=== PATIENT | male | born 1995 | race Caucasian/White ===

== ENCOUNTER 2025-07-10 18:58 | Inpatient (IN) | payer BC, SELFPAY ==
[2025-07-10] VITALS (11 sets, daily range): BP systolic 126–161; BP diastolic 68–132; PULSE 96–123; RESP 13–20; TEMP 36.7–36.8; O2SAT 86–99; BMI 37.8; BMI 36.4
--- NOTE | 2025-07-10 19:27 | RAD_ITS ---
PROCEDURE: ANKLE MIN 3 VIEWS 07/10/2025 REASON FOR EXAM: FRACTURE TECHNIQUE: Procedure Code: RADANK Modality: DX Procedure: ANKLE MIN 3 VIEWS COMPARISON: None FINDINGS: Complex fracture dislocation with combination of the ankle and disarticulation of the ankle mortise with regional soft tissue swelling with dorsal displacement of the tibia relative to the ankle. RAD/Ankle min 3 Views IMPRESSION: As above. Reading Location: [facility]
[2025-07-10] MEDS: 0.9% Normal Saline (1000mL) 1,000 ML 999 ML IV (19:35)
[2025-07-10] MEDS: Midazolam 5 MG/ML Syringe IV (20:05)
--- NOTE | 2025-07-10 20:25 | RAD_ITS ---
PROCEDURE: ANKLE MIN 3 VIEWS 07/10/2025 REASON FOR EXAM: POSTREDUCTION TECHNIQUE: Procedure Code: RADANK Modality: DX Procedure: ANKLE MIN 3 VIEWS COMPARISON: Reviewed FINDINGS: Casted left ankle fracture dislocation with disarticulation of the ankle mortise with regional soft tissue swelling in anatomic malalignment, slightly improved from priors. RAD/Ankle min 3 Views IMPRESSION: As above. Reading Location: [facility]
--- NOTE | 2025-07-10 20:29 | EX.ED.DYSGE1 ---
HPI History of Present Illness Chief Complaint: Lower Extremity Injury Informant: patient and EMS Narrative Narrative: Patient is a 30-year-old male who reports no significant past medical history. He does admit to drinking vodka daily. He states that he was out hunting and as he was walking back to his house he slipped on ice while at the top of stairs and fell injuring his left ankle. He states that he did not strike his head or have loss of consciousness. He denies any history of bleeding disorder or blood thinner use. He states he could not get up secondary to the trauma and EMS was called and he was brought in for evaluation [facility] Medical History Ankle fracture Torn ACL Medical History no medical history Home Medications ?Medication ?Instructions ?Recorded ?Last Taken ?Type NK 07/10/25 Unknown History Allergy/AdvReac Type Severity Reaction Status Date / Time No Known Allergies Allergy Verified 07/10/25 19:02 Social History Smoking Status: Never smoker ROS ROS ED Constitutional Constitutional ED: Denies chills or fever(s) Eyes Eyes: Denies blurry vision or change in vision Cardiovascular Cardiovascular: Reports other Details: Negative syncope ; Denies chest pain, palpitations or racing heartbeat Respiratory/Chest Respiratory/Chest: Denies cough or dyspnea Gastrointestinal Gastrointestinal: Denies abdominal pain, diarrhea, nausea or vomiting Genitourinary Genitourinary ED: Reports dysuria Musculoskeletal Musculoskeletal: Reports other Details: Positive left ankle pain ; Denies back pain or neck pain Integumentary Denies rash Neurologic Neurologic: Denies headache(s) or paresthesias Hematologic/Lymphatic Hematologic/Lymphatic: Denies easy bleeding or easy bruising EXAM Physical Exam Const Vital Signs: 07/10/25 18:59 07/10/25 19:28 07/10/25 19:28 Temperature 98.3 F Temperature Source Oral Pulse Rate 109 H Pulse Rate [1 (Initial Baseline)] Respiratory Rate 18 Respiratory Rate [1 (Initial Baseline)] Blood Pressure 158/100 H Blood Pressure [1 (Initial Baseline)] Blood Pressure Mean 119 Baseline BP Pulse Ox 96 96 Oxygen Delivery Method Nasal Cannula Oxygen Delivery Method [1 (Initial Baseline)] Oxygen Flow Rate (L/min) 2 Oxygen Flow Rate (L/min) [1 (Initial Baseline)] Fraction of Inspired Oxygen (FIO2) [1 (Initial Baseline)] EtCo2 - Document during CPR and with ROSC 40 EtCo2 - Document during CPR and with ROSC [1 (Initial Baseline)] 07/10/25 19:56 07/10/25 20:00 07/10/25 20:06 Temperature 98.1 F Temperature Source Pulse Rate 109 H Pulse Rate [1 (Initial Baseline)] 96 123 H Respiratory Rate 18 Respiratory Rate [1 (Initial Baseline)] 19 H 13 Blood Pressure 153/132 H Blood Pressure [1 (Initial Baseline)] 143/99 H 126/82 H Blood Pressure Mean Baseline BP 153/132 Pulse Ox 97 Oxygen Delivery Method Nasal Cannula Oxygen Delivery Method [1 (Initial Baseline)] Nasal Cannula Nasal Cannula Oxygen Flow Rate (L/min) 2 Oxygen Flow Rate (L/min) [1 (Initial Baseline)] 2 5 Fraction of Inspired Oxygen (FIO2) [1 (Initial Baseline)] 98 EtCo2 - Document during CPR and with ROSC EtCo2 - Document during CPR and with ROSC [1 (Initial Baseline)] 35 30 07/10/25 20:15 07/10/25 20:28 07/10/25 20:43 Temperature Temperature Source Pulse Rate 108 H 110 H 111 H Pulse Rate [1 (Initial Baseline)] Respiratory Rate 15 15 19 H Respiratory Rate [1 (Initial Baseline)] Blood Pressure 153/107 H 161/92 H 143/79 H Blood Pressure [1 (Initial Baseline)] Blood Pressure Mean Baseline BP Pulse Ox 99 99 97 Oxygen Delivery Method Nasal Cannula Nasal Cannula Room Air Oxygen Delivery Method [1 (Initial Baseline)] Oxygen Flow Rate (L/min) 5 2 Oxygen Flow Rate (L/min) [1 (Initial Baseline)] Fraction of Inspired Oxygen (FIO2) [1 (Initial Baseline)] EtCo2 - Document during CPR and with ROSC 35 41 40 EtCo2 - Document during CPR and with ROSC [1 (Initial Baseline)] 07/10/25 22:00 Temperature Temperature Source Pulse Rate 111 H Pulse Rate [1 (Initial Baseline)] Respiratory Rate 20 H Respiratory Rate [1 (Initial Baseline)] Blood Pressure 136/68 H Blood Pressure [1 (Initial Baseline)] Blood Pressure Mean 90 Baseline BP Pulse Ox 97 Oxygen Delivery Method Room Air Oxygen Delivery Method [1 (Initial Baseline)] Oxygen Flow Rate (L/min) Oxygen Flow Rate (L/min) [1 (Initial Baseline)] Fraction of Inspired Oxygen (FIO2) [1 (Initial Baseline)] EtCo2 - Document during CPR and with ROSC EtCo2 - Document during CPR and with ROSC [1 (Initial Baseline)] Positive well nourished and well developed General Appearance ED: well developed HEENT HEENT Narrative: Normocephalic atraumatic No signs of depressed or basilar skull fracture Eyes PERRL and EOMs intact bilaterally General Eye ED: Negative for scleral icterus Neck supple Neck Narrative: No bony deformity or step-off of the cervical spine No midline tenderness to palpation Chest Wall palpation of chest normal Resp normal respiratory effort and clear to auscultation bilaterally Cardio regular rhythm Rate: tachycardic and other Other Details: Tachycardic rate with regular rhythm No murmurs rubs or gallops Radial and carotid pulses are equal and symmetric GI normal to inspection, nondistended, normoactive bowel sounds, non-tender, non-distended and no masses Auscultation: normoactive bowel sounds Palpation: soft Extremity Extremity Narrative: Left lower extremity is neurovascularly intact. There is an obvious deformity of the left ankle mortise consistent with fracture and dislocation. However the patient is closed. Dorsalis pedis and posterior pulse is +1 on the left. Capillary refill is less than 3 seconds. No pain on palpation of the proximal tibia Pelvis is stable Neuro oriented x3, CN's II-XII intact bilaterally and no sensory deficits noted Sensorium / Orientation: alert Psych mental status grossly normal Skin Skin Narrative: There is skin tenting secondary to the ankle fracture without puncture wound or laceration. Capillary refill remains less than 3 seconds. MDM MDM MDM Narrative Medical decision making narrative: Patient reported a mechanical fall therefore there is no need for cardiac or syncope workup. He had an obvious deformity of the left ankle. However he is closed and neurovascularly intact therefore there is no need for immediate reduction. The patient has a distracting injury but there is no obvious signs of trauma anywhere else going against a proximal tibia fracture or pelvic fracture. An x-ray was obtained which confirmed a trimalleolar fracture with talar dislocation. Patient underwent conscious sedation with closed reduction as documented below. However despite improvement of the ankle joint by external visualization x-rays confirm there was still talar displacement. The case was discussed with pediatric dental assistant on-call Dr. Matute. He recommends that as the patient's pain is not well-controlled and I cannot get the fracture alignment close anatomical despite trying 3 separate times that admission with surgery tomorrow is the safest option. Therefore the hospitalist was contacted and agrees to accept the patient for continued care. Patient underwent conscious sedation with closed reduction of left ankle using 170 mg of propofol and 5 mg of Versed. Traction and inversion was applied to the foot and there was spontaneous improvement of the appearance of the ankle joint. Following this the patient was placed in a posterior tibial and stirrup splint. Following application of the splint capillary refill remained less than 3-second. Patient tolerated the procedure well without complication. Total conscious sedation time of approximately 15 minutes The patient does report to essentially drinking daily but has been over 12 hours since his last drink and he only has mild tachycardia which has been in place since he arrived and otherwise is not showing signs of active withdrawal History & Record Review Discussion w/independent historian: EMS personnel and Patient Lab Data Attestation: I reviewed the patient's lab results. Labs: Laboratory Results - last 24 hr 07/10/25 21:52 WBC 11.3 H RBC 4.25 L Hgb 14.9 Hct 40.9 MCV 96.2 H MCH 35.1 H MCHC 36.4 H RDW Std Deviation 41.8 RDW Coeff of Susi 12.0 Plt Count 185 MPV 9.0 Immature Gran % (Auto) 0.300 Neut % (Auto) 74.9 H Lymph % (Auto) 17.5 L Dawson % (Auto) 6.2 Eos % (Auto) 0.7 Baso % (Auto) 0.4 Absolute Neuts (auto) 8.4 H Absolute Lymphs (auto) 1.97 Nucleated RBC % 0 PT 13.9 INR 1.1 APTT 25.6 Sodium 140 Potassium 3.7 Chloride 102 Carbon Dioxide 22.1 Anion Gap 15 BUN 7 Creatinine 0.84 Estim Creat Clear Calc 180.04 Est GFR (MDRD) Non-Af 120 BUN/Creatinine Ratio 8.5 L Glucose 107 H Calcium 8.9 Magnesium 1.9 Total Bilirubin 0.75 AST 228 H ALT 253 H Alkaline Phosphatase 74 Total Protein 7.4 Albumin 4.5 Globulin 2.8 Albumin/Globulin Ratio 1.6 Radiography Diagnostic Testing: Clinical Impression(s) from Imaging Studies Ankle X-Ray 07/10/25 19:27 IMPRESSION: As above. Reading Location: [facility] Ankle X-Ray 07/10/25 20:25 IMPRESSION: As above. Reading Location: [facility] Ankle X-Ray 07/10/25 21:40 IMPRESSION: As above. Reading Location: [facility] Initial left ankle x-ray as interpreted by the emergency medicine physician reveals a trimalleolar fracture with talar dislocation There are 3 separate x-rays for postreduction. Each x-ray series was reviewed by the emergency medicine physician and each show slight improvement of the talar alignment with persistent trimalar fracture Management Discussion w/another healthcare provider: Hospitalist and Pump Servicer Supervisor Procedures Procedural Sedation 1 (Initial Baseline): Consent Signed: Yes Any Problems With Anesthesia: No You/Your family experience fever (hyperthermia) w/anesthesia: Unknown Sedation medication: Propofol (Propofol and Versed were used) Dose: 170 Maliampati Score: Class II ASA Classification: II Discharge Plan Dx/Rx/DC Orders Clinical Impression: Fracture dislocation of left ankle, Accidental fall, Alcohol use Disposition Disposition: Acute Care [facility]
--- NOTE | 2025-07-10 20:58 | CONS.ORTHO ---
HPI Consult Data Date of Consult: 07/10/25 HPI Narrative HPI Narrative: LYDIA NGUYỄN, is a 30 M who presents post CR for ankle trimal fracture. [facility] Medical History (Updated 07/10/25 @ 20:59 by Constantine Owen MD) Ankle fracture Torn ACL Medical History no medical history Home Medications ?Medication ?Instructions ?Recorded ?Last Taken ?Type NK 07/10/25 Unknown History Allergy/AdvReac Type Severity Reaction Status Date / Time No Known Allergies Allergy Verified 07/10/25 19:02 Social History Smoking Status: Never smoker Vital Signs Vital Signs Vital Signs: 07/10/25 18:59 07/10/25 19:28 07/10/25 19:28 Temperature 98.3 F Temperature Source Oral Pulse Rate 109 H Pulse Rate [1 (Initial Baseline)] Respiratory Rate 18 Respiratory Rate [1 (Initial Baseline)] Blood Pressure 158/100 H Blood Pressure [1 (Initial Baseline)] Blood Pressure Mean 119 Baseline BP Pulse Ox 96 96 Oxygen Delivery Method Nasal Cannula Oxygen Delivery Method [1 (Initial Baseline)] Oxygen Flow Rate (L/min) 2 Oxygen Flow Rate (L/min) [1 (Initial Baseline)] Fraction of Inspired Oxygen (FIO2) [1 (Initial Baseline)] EtCo2 - Document during CPR and with ROSC 40 EtCo2 - Document during CPR and with ROSC [1 (Initial Baseline)] 07/10/25 19:56 07/10/25 20:00 07/10/25 20:06 Temperature 98.1 F Temperature Source Pulse Rate 109 H Pulse Rate [1 (Initial Baseline)] 96 123 H Respiratory Rate 18 Respiratory Rate [1 (Initial Baseline)] 19 H 13 Blood Pressure 153/132 H Blood Pressure [1 (Initial Baseline)] 143/99 H 126/82 H Blood Pressure Mean Baseline BP 153/132 Pulse Ox 97 Oxygen Delivery Method Nasal Cannula Oxygen Delivery Method [1 (Initial Baseline)] Nasal Cannula Nasal Cannula Oxygen Flow Rate (L/min) 2 Oxygen Flow Rate (L/min) [1 (Initial Baseline)] 2 5 Fraction of Inspired Oxygen (FIO2) [1 (Initial Baseline)] 98 EtCo2 - Document during CPR and with ROSC EtCo2 - Document during CPR and with ROSC [1 (Initial Baseline)] 35 30 07/10/25 20:15 07/10/25 20:28 07/10/25 20:43 Temperature Temperature Source Pulse Rate 108 H 110 H 111 H Pulse Rate [1 (Initial Baseline)] Respiratory Rate 15 15 19 H Respiratory Rate [1 (Initial Baseline)] Blood Pressure 153/107 H 161/92 H 143/79 H Blood Pressure [1 (Initial Baseline)] Blood Pressure Mean Baseline BP Pulse Ox 99 99 97 Oxygen Delivery Method Nasal Cannula Nasal Cannula Room Air Oxygen Delivery Method [1 (Initial Baseline)] Oxygen Flow Rate (L/min) 5 2 Oxygen Flow Rate (L/min) [1 (Initial Baseline)] Fraction of Inspired Oxygen (FIO2) [1 (Initial Baseline)] EtCo2 - Document during CPR and with ROSC 35 41 40 EtCo2 - Document during CPR and with ROSC [1 (Initial Baseline)] Weight Weight: 286 lb 6.087 oz Body Mass Index (BMI) 37.8 Imaging Radiology Impression Ankle X-Ray 07/10/25 19:27 IMPRESSION: As above. Reading Location[facility] Ankle X-Ray 07/10/25 20:25 IMPRESSION: As above. Reading Location: [facility] Assessment & Plan Assessment/Plan (1) Ankle fracture: PLAN: 30 yr M with ankle trimal fracture. Talus still looks laterally tilted - recommended to remove splint, keep foot plantar flexed, and apply inversion force, with point over tip of fibula pushing medially with new splint and repeat xr to ensure reduction that would take pressure off medial skin. Asked to see if podiatry willing to take on, if not, then call me back to let me know thanks.
--- NOTE | 2025-07-10 21:02 | CM.ED ---
Social Work Date of referral: 07/10/25 Reason for referral: Primary Care Physician (PCP) not on file. Referred by: Social Work Identification Patient provided consent to home support worker visit. Patient stated he had a PCP once, a few years ago, but never went back. Group Chief Operator provided information about the importance of being connected to a PCP which patient verbalized he understood. Group Chief Operator offered patient a written handout for the [facility] which patient accepted and expressed appreciation for. Brandee Francis, CARDIOVASCULAR DISEASE SPECIALIST, DIRECTOR OF STUDENT AID
[2025-07-10] MEDS: Midazolam 5 MG/ML Syringe 2.5 MG IV (21:11)
--- NOTE | 2025-07-10 21:40 | RAD_ITS ---
PROCEDURE: ANKLE MIN 3 VIEWS 07/10/2025 REASON FOR EXAM: 2ND REDUCTION TECHNIQUE: Procedure Code: RADANK Modality: DX Procedure: ANKLE MIN 3 VIEWS COMPARISON: Reviewed FINDINGS: Repeat reduction. Casted left ankle fracture dislocation with disarticulation of the ankle mortise with regional soft tissue swelling in anatomic malalignment, improved from priors. RAD/Ankle min 3 Views IMPRESSION: As above. Reading Location: [facility]
[2025-07-10 21:57] LABS: Hematocrit 40.9 % (40-54); Hemoglobin 14.9 g/dL (13.0-16.5); Immature Granulocytes Count 0.030 X10^3/uL (0.0-0.0); Mean Corp Hgb Conc 36.4 g/dL (32-36); Mean Corpuscular Volume 96.2 fL (80-94); Mean Platelet Vol. 9.0 fl (6.2-12.0); NRBC Flagged by Analyzer 0 % (0-5); Platelet Count 185 K/mm3 (150-450); RBC Distribution Width CV 12.0 % (11.6-14.6); RBC Distribution Width SD 41.8 fl (35.1-43.9); Red Blood Count 4.25 M/mm3 (4.6-6.2); White Blood Count 11.3 K/mm3 (4.4-11.0)
[2025-07-10 22:22] LABS: AST(SGOT) 228 U/L (<=37); Alanine Aminotransfer ALT/SGPT 253 U/L (<=46); Albumin, Serum 4.5 g/dL (3.5-5.0); Alkaline Phosphatase 74 U/L (40-129); Anion Gap 15 (5-15); BUN 7 mg/dL (4-19); BUN/Creat Ratio 8.5 RATIO (10-20); Calcium,Total 8.9 mg/dL (7.6-11.0); Carbon Dioxide 22.1 mmol/L (21.0-32.0); Chloride 102 mmol/L (98-108); Estimated Creatinine Clearance 180.04 ml/min (50-250); Globulin 2.8 g/dL (2.2-4.2); Glucose 107 mg/dL (70-99); Potassium 3.7 mmol/L (3.3-5.1)
[2025-07-10 22:29] LABS: Partial Thromboplast Time 25.6 Seconds (24.1-36.2); Prothrombin Time (Protime)PT. 13.9 SECONDS (11.7-14.9)
--- NOTE | 2025-07-10 22:52 | EKG12_ITS ---
Test Reason : ARRYTH Blood Pressure : */* mmHG Vent. Rate : 111 BPM Atrial Rate : 111 BPM P-R Int : 158 ms QRS Dur : 88 ms QT Int : 320 ms P-R-T Axes : 50 9 19 degrees QTcB Int : 435 ms Sinus tachycardia Minimal voltage criteria for LVH, may be normal variant ( R in aVL ) Borderline ECG Confirmed by DEWAYNE MCKENZIE, SHIRA ([id number]), international editorial producer MINE GUERRIER ([id number]) on 07/12/2025 6:10:46 AM Referred By: Confirmed By: SHIRA BUCHANAN MD
--- NOTE | 2025-07-10 22:54 | PCM.HP.STD ---
HPI - General General Date of Admission: 07/10/25 Date of Service: 07/10/25 Chief Complaint: Sleep while walking and left ankle gave out today HPI Narrative LYDIA NGUYỄN, is a 30 M came to ED after while walking outside on a hunting trip, slipped and rolled his left ankle and then fell on the buttock. He felt severe pain on the left ankle with pop ultrasound and then not able to get up or walk. He exertion and that bone might have been fracture. Patient had severe pain over the left ankle 10 out of 10 localized with proximal radiation. In ED x-ray left ankle shows complex fracture dislocation with combination of ankle and disarticulation of ankle mortise and dorsal displacement of the tibia relative to the ankle. Ankle was reduced by orthopedic surgeon Dr. Liriano and then paper bag making machinist was consulted and planned for ORIF tomorrow. Social history Patient also drinks alcohol about 2-3 cocktail containing vodka every day. Denies smoking or substance use. Denies past medical or surgical chronic disease. Family history of chronic cardiac disease in parent [facility] Medical History Ankle fracture Torn ACL Medical History no medical history Home Medications ?Medication ?Instructions ?Recorded ?Last Taken ?Type NK 07/10/25 Unknown History Allergy/AdvReac Type Severity Reaction Status Date / Time No Known Allergies Allergy Verified 07/10/25 19:02 Social History Smoking Status: Never smoker ROS ROS Narrative Constitutional: Denies chronic fatigue and weakness. No fever. No URI-like symptoms HEENT: Reports systems reviewed and no addt'l complaints, except as documented Respiratory/Chest: No acute shortness of breath or respiratory distress or wheezing. CVS: Denies chronic heart disease. No chest pain or shortness of breath Gastrointestinal: Denies coffee ground emesis, hematemesis or vomiting Genitourinary: Denies burning urination or new urinary tract symptoms Musculoskeletal: Acute injury and left ankle fracture with pain as described in HPI Neurologic: Denies seizure-like symptoms. skin: No ulcer. No rash Endocrinology: Reports systems reviewed and no addt'l complaints, except as documented Hematologic/Lymphatic: Reports systems reviewed and no addt'l complaints, except as documented Rest 14 ROS are negative except as mentioned in HPI Vital Signs Vital Signs Vital Signs: 07/10/25 18:59 07/10/25 19:28 07/10/25 19:28 Temperature 98.3 F Temperature Source Oral Pulse Rate 109 H Pulse Rate [1 (Initial Baseline)] Respiratory Rate 18 Respiratory Rate [1 (Initial Baseline)] Blood Pressure 158/100 H Blood Pressure [1 (Initial Baseline)] Blood Pressure Mean 119 Baseline BP Pulse Ox 96 96 Oxygen Delivery Method Nasal Cannula Oxygen Delivery Method [1 (Initial Baseline)] Oxygen Flow Rate (L/min) 2 Oxygen Flow Rate (L/min) [1 (Initial Baseline)] Fraction of Inspired Oxygen (FIO2) [1 (Initial Baseline)] EtCo2 - Document during CPR and with ROSC 40 EtCo2 - Document during CPR and with ROSC [1 (Initial Baseline)] 07/10/25 19:56 07/10/25 20:00 07/10/25 20:06 Temperature 98.1 F Temperature Source Pulse Rate 109 H Pulse Rate [1 (Initial Baseline)] 96 123 H Respiratory Rate 18 Respiratory Rate [1 (Initial Baseline)] 19 H 13 Blood Pressure 153/132 H Blood Pressure [1 (Initial Baseline)] 143/99 H 126/82 H Blood Pressure Mean Baseline BP 153/132 Pulse Ox 97 Oxygen Delivery Method Nasal Cannula Oxygen Delivery Method [1 (Initial Baseline)] Nasal Cannula Nasal Cannula Oxygen Flow Rate (L/min) 2 Oxygen Flow Rate (L/min) [1 (Initial Baseline)] 2 5 Fraction of Inspired Oxygen (FIO2) [1 (Initial Baseline)] 98 EtCo2 - Document during CPR and with ROSC EtCo2 - Document during CPR and with ROSC [1 (Initial Baseline)] 35 30 07/10/25 20:15 07/10/25 20:28 07/10/25 20:43 Temperature Temperature Source Pulse Rate 108 H 110 H 111 H Pulse Rate [1 (Initial Baseline)] Respiratory Rate 15 15 19 H Respiratory Rate [1 (Initial Baseline)] Blood Pressure 153/107 H 161/92 H 143/79 H Blood Pressure [1 (Initial Baseline)] Blood Pressure Mean Baseline BP Pulse Ox 99 99 97 Oxygen Delivery Method Nasal Cannula Nasal Cannula Room Air Oxygen Delivery Method [1 (Initial Baseline)] Oxygen Flow Rate (L/min) 5 2 Oxygen Flow Rate (L/min) [1 (Initial Baseline)] Fraction of Inspired Oxygen (FIO2) [1 (Initial Baseline)] EtCo2 - Document during CPR and with ROSC 35 41 40 EtCo2 - Document during CPR and with ROSC [1 (Initial Baseline)] 07/10/25 22:00 07/10/25 22:40 Temperature 98.1 F Temperature Source Pulse Rate 111 H 114 H Pulse Rate [1 (Initial Baseline)] Respiratory Rate 20 H 15 Respiratory Rate [1 (Initial Baseline)] Blood Pressure 136/68 H 138/76 H Blood Pressure [1 (Initial Baseline)] Blood Pressure Mean 90 96 Baseline BP Pulse Ox 97 97 Oxygen Delivery Method Room Air Oxygen Delivery Method [1 (Initial Baseline)] Oxygen Flow Rate (L/min) Oxygen Flow Rate (L/min) [1 (Initial Baseline)] Fraction of Inspired Oxygen (FIO2) [1 (Initial Baseline)] EtCo2 - Document during CPR and with ROSC EtCo2 - Document during CPR and with ROSC [1 (Initial Baseline)] Weight Weight: 286 lb 6.087 oz Body Mass Index (BMI) 37.8 Physical Exam Narrative General: Alert, Oriented x3, Cooperative HEENT: Atraumatic, PERRLA, EOMI, Normocephalic. Oral: No Gingival or Mucosal Lesions/ Ulcerations Neck: Supple, No JVD, Negative Carotid Bruits Chest wall/Lungs: Air entry equal in bilateral lung bases. No crepitation/rhonchi Cardiovascular: Sinus tachycardia normal S1,S2, No M/G/R Abdomen: Bowel Sounds Present, Soft, Non Tender, Non-Distended : No dysuria. No renal angle tenderness. No suprapubic tenderness. Extremities: No edema, Capillary Refill Less than 3 Seconds Skin: No rashes, No breakdown Musculoskeletal: Left ankle and upper leg is casted after closed reduction. Pain controlled. Neurological: Cranial nerves II-XII grossly intact, DTR 2+/4. No acute focal neurological deficit. Psych/Mental Status: Flat affect Results Lab / Micro Data 07/10/25 21:52 07/10/25 21:52 Labs: Laboratory Results - last 24 hr 07/10/25 21:52: WBC 11.3 H, RBC 4.25 L, Hgb 14.9, Hct 40.9, MCV 96.2 H, MCH 35.1 H, MCHC 36.4 H, RDW Std Deviation 41.8, RDW Coeff of Susi 12.0, Plt Count 185, MPV 9.0, Immature Gran % (Auto) 0.300, Neut % (Auto) 74.9 H, Lymph % (Auto) 17.5 L, [place] % (Auto) 6.2, Eos % (Auto) 0.7, Baso % (Auto) 0.4, Absolute Neuts (auto) 8.4 H, Absolute Lymphs (auto) 1.97, Nucleated RBC % 0, PT 13.9, INR 1.1, APTT 25.6, Sodium 140, Potassium 3.7, Chloride 102, Carbon Dioxide 22.1, Anion Gap 15, BUN 7, Creatinine 0.84, Estim Creat Clear Calc 180.04, Est GFR (MDRD) Non-Af 120, BUN/Creatinine Ratio 8.5 L, Glucose 107 H, Calcium 8.9, Total Bilirubin 0.75, AST 228 H, ALT 253 H, Alkaline Phosphatase 74, Total Protein 7.4, Albumin 4.5, Globulin 2.8, Albumin/Globulin Ratio 1.6 Imaging Radiology Impression Ankle X-Ray 07/10/25 19:27 IMPRESSION: As above. Reading Location: [facility] Ankle X-Ray 07/10/25 20:25 IMPRESSION: As above. Reading Location: [facility] Ankle X-Ray 07/10/25 21:40 IMPRESSION: As above. Reading Location: [facility] Assessment & Plan Assessment/Plan (1) Ankle fracture: QUALIFIERS: Encounter type: initial encounter Fracture type: closed Laterality: left Qualified Code(s): S82.892A - Other fracture of left lower leg, initial encounter for closed fracture PLAN: Plan This 30-year-old gentleman being admitted after left ankle fracture with dislocation 1. Acute debility due to slip complicating into left complex fracture dislocation of ankle with disarticulation of the ankle mortise with regional soft tissue swelling and dorsal displacement of the tibia relative to ankle: The patient is being admitted on the MedSur floor. Pain control with Tylenol and oxycodone. Podiatry Dr. Matute is consulted for ORIF tomorrow. N.p.o. past midnight. IV fluids normal saline ordered during n.p.o. 2. Sinus tachycardia with elevated blood pressure: Patient does not know his baseline heart rate and blood pressure. Denies history of hypertension. Systolic BP elevated is in 140s to 150s. Heart rate on the monitor is 120s in ED. Twelve-lead EKG ordered. Patient denies any chronic heart disease or arrhythmia 3. Chronic alcohol use disorder: Denies hallucination, delusion or seizure. Mild sinus tachycardia might be a sign of early alcohol withdrawal. CIWA 24-hour monitoring with order set of as needed oral and IV lorazepam ordered. Counseling done to quit alcohol. 4. Chronic alcoholic hepatitis: AST 228, ALT 253. TB, alkaline phosphatase, albumin are normal. Monitor liver chemistry and electrolyte. DVT prophylaxis, high risk due to ankle fracture: Heparin 5000 units subcutaneous twice daily ordered with instruction to hold before surgery. Living will/advanced directive/end of life care: Patient does not have living will or advanced directive. He does not have negative power of insurance attorney for health. His father is next of kin. After discussion of benefits/risks procedures involved with full code, DNR CC arrest and DNR CC, the patient opted for full code. Patient does want artificial life support including intubation, tube feed, ventilator and/chest compression, central venous catheter, vasopressor and DC shock if needed Total time spent in [id number] encounter in discussion of advanced directive 17 minutes. Charges/Coding Visit Charges Inpatient E&M: 46326 Init Hosp L3 Procedures Hospitalists Procedures: 99848 Advncd Care Plan 30 Min
[2025-07-10 23:03] LABS: Magnesium 1.9 mg/dL (1.5-2.2)
[2025-07-10 23:33] LABS: CPK Total, Creatine Kinase 184 U/L (24-195)
[2025-07-11] VITALS (21 sets, daily range): BP systolic 104–186; BP diastolic 65–115; PULSE 80–114; RESP 16–20; TEMP 36.1–37.3; O2SAT 94–100; BMI 36.6; BMI 36.5
--- NOTE | 2025-07-11 | CT_ITS ---
PROCEDURE: EXTREMITY LOWER WITHOUT CONTRA 07/11/2025 REASON FOR EXAM: LEFT ANKLE FRACTURE TECHNIQUE: Procedure Code: CTELWO Modality: CT Procedure: EXTREMITY LOWER WITHOUT CONTRA Coronal and Sagittal reconstruction series were provided. None One or more dose reduction techniques were used (e.g., Automated exposure control, adjustment of the mA and/or kV according to patient size, use of iterative reconstruction technique). RADIATION DOSE SUMMARY: CTDlvol: 15.35 mGy DLP: 4.7.49 mGycm COMPARISON: None FINDINGS: Acute comminuted displaced fracture is seen involving lateral malleolus at the level of the syndesmosis seen migrating superiorly with associated displaced fractures of the posterior and medial malleoli as well as subluxation of the tibiotalar joint and disruption of the mortise. Associated periarticular soft tissue edema is noted. A small plantar calcaneal spur is noted. Intact subtalar joint and the visualized parts of the intertarsal joints. No soft tissue masses noted. Mild to moderate tibiotalar joint effusion is seen. CT/Extremity Lower without Contra IMPRESSION: Acute displaced trans-syndesmotic fracture of the lateral malleolus with associ ated displaced fractures of the posterior and medial malleoli and disruption of the mortise. Lezama B-stage 4. Reading Location: [facility]
[2025-07-11] MEDS: 0.9% Saline Lock 10 ML Syringe IV ×5 (00:45→21:46)
[2025-07-11] MEDS: 0.9% Normal Saline (1000mL) 1,000 ML 75 ML IV (00:46)
[2025-07-11 05:42] LABS: Hematocrit 41.5 % (40-54); Hemoglobin 14.5 g/dL (13.0-16.5); Immature Granulocytes Count 0.050 X10^3/uL (0.0-0.0); Mean Corp Hgb Conc 34.9 g/dL (32-36); Mean Corpuscular Volume 98.1 fL (80-94); Mean Platelet Vol. 9.2 fl (6.2-12.0); NRBC Flagged by Analyzer 0 % (0-5); Platelet Count 192 K/mm3 (150-450); RBC Distribution Width CV 12.1 % (11.6-14.6); RBC Distribution Width SD 43.8 fl (35.1-43.9); Red Blood Count 4.23 M/mm3 (4.6-6.2); White Blood Count 12.4 K/mm3 (4.4-11.0)
[2025-07-11 06:03] LABS: AST(SGOT) 177 U/L (<=37); Alanine Aminotransfer ALT/SGPT 232 U/L (<=46); Albumin, Serum 4.6 g/dL (3.5-5.0); Alkaline Phosphatase 74 U/L (40-129); Anion Gap 16 (5-15); BUN 8 mg/dL (4-19); BUN/Creat Ratio 9.5 RATIO (10-20); Calcium,Total 9.1 mg/dL (7.6-11.0); Carbon Dioxide 24.7 mmol/L (21.0-32.0); Chloride 102 mmol/L (98-108); Estimated Creatinine Clearance 178.93 ml/min (50-250); Globulin 2.6 g/dL (2.2-4.2); Glucose 119 mg/dL (70-99); Potassium 3.8 mmol/L (3.3-5.1)
--- NOTE | 2025-07-11 06:57 | NURSING ---
Pt with dry heaves, tremors felt with arms extended, reports moderate anxiety, restless, states he thought was hearing someone talk as he was trying to fall asleep. See ciwa
--- NOTE | 2025-07-11 07:25 | PN.HOSP_ITS ---
Reason for Visit Chief Complaint: Sleep while walking and left ankle gave out today Subjective Subjective Patient is a 30-year-old gentleman who presented with left ankle pain following a fall imaging studies demonstrated left ankle fracture with dislocation admitted to regular nursing floor for further management Objective Data Objective Data Vital Signs: Vital Signs Temp Pulse Resp BP Pulse Ox O2 Del Method O2 Flow Rate 98.1 F 113 H 20 H 186/115 H 97 Room Air 2 07/11/25 06:37 07/11/25 06:37 07/11/25 06:37 07/11/25 06:37 07/11/25 06:37 07/11/25 06:37 07/10/25 20:28 FiO2 98 07/10/25 20:00 Oxygen Flow Rate (L/min) [1 ( 5 Initial Baseline)] Oxygen Flow Rate (L/min) 2 Oxygen Delivery Method [1 ( Nasal Cannula Initial Baseline)] Oxygen Delivery Method Room Air Weight: 125.5 kg Body Mass Index (BMI) 36.6 Intake & Output: Intake and Output for Last 24 Hours 07/09/25 07/10/25 07/11/25 23:59 23:59 23:59 Intake Total 1000 / 1000 Output Total 350 / 350 Balance 1000 / 1000 -350 / -350 Lab / Micro Data 07/11/25 05:15 07/11/25 05:15 Labs: Laboratory Results - last 24 hr 07/10/25 21:52: WBC 11.3 H, RBC 4.25 L, Hgb 14.9, Hct 40.9, MCV 96.2 H, MCH 35.1 H, MCHC 36.4 H, RDW Std Deviation 41.8, RDW Coeff of Susi 12.0, Plt Count 185, MPV 9.0, Immature Gran % (Auto) 0.300, Neut % (Auto) 74.9 H, Lymph % (Auto) 17.5 L, [place] % (Auto) 6.2, Eos % (Auto) 0.7, Baso % (Auto) 0.4, Absolute Neuts (auto) 8.4 H, Absolute Lymphs (auto) 1.97, Nucleated RBC % 0, PT 13.9, INR 1.1, APTT 25.6, Sodium 140, Potassium 3.7, Chloride 102, Carbon Dioxide 22.1, Anion Gap 15, BUN 7, Creatinine 0.84, Estim Creat Clear Calc 180.04, Est GFR (MDRD) Non-Af 120, BUN/Creatinine Ratio 8.5 L, Glucose 107 H, Calcium 8.9, Magnesium 1.9, Total Bilirubin 0.75, AST 228 H, ALT 253 H, Alkaline Phosphatase 74, Total Creatine Kinase 184, Total Protein 7.4, Albumin 4.5, Globulin 2.8, Albumin/Globulin Ratio 1.6 07/11/25 05:15: WBC 12.4 H, RBC 4.23 L, Hgb 14.5, Hct 41.5, MCV 98.1 H, MCH 34.3 H, MCHC 34.9, RDW Std Deviation 43.8, RDW Coeff of Susi 12.1, Plt Count 192, MPV 9.2, Immature Gran % (Auto) 0.400, Neut % (Auto) 75.3 H, Lymph % (Auto) 15.5 L, [place] % (Auto) 7.9, Eos % (Auto) 0.5, Baso % (Auto) 0.4, Absolute Neuts (auto) 9.4 H, Absolute Lymphs (auto) 1.92, Nucleated RBC % 0, Sodium 143, Potassium 3.8, Chloride 102, Carbon Dioxide 24.7, Anion Gap 16 H, BUN 8, Creatinine 0.83, Estim Creat Clear Calc 178.93, Est GFR (MDRD) Non-Af 120, BUN/Creatinine Ratio 9.5 L, Glucose 119 H, Calcium 9.1, Total Bilirubin 1.31 H, AST 177 H, ALT 232 H, Alkaline Phosphatase 74, Total Protein 7.2, Albumin 4.6, Globulin 2.6, Albumin/Globulin Ratio 1.7 Radiography Diagnostic Testing: Radiology Impression Ankle X-Ray 07/10/25 19:27 IMPRESSION: As above. Reading Location: [facility] Ankle X-Ray 07/10/25 20:25 IMPRESSION: As above. Reading Location: [facility] Ankle X-Ray 07/10/25 21:40 IMPRESSION: As above. Reading Location: [facility] Lower Extremity CT 07/11/25 00:00 IMPRESSION: Acute displaced trans-syndesmotic fracture of the lateral malleolus with associated displaced fractures of the posterior and medial malleoli and disruption of the mortise. Lezama B-stage 4. Reading Location: [place] [id number] Physical Exam Narrative GENERAL: cooperative HEENT: Atraumatic; normocephalic EYES; Anicteric, Normal Conjunctiva NECK; supple, normal thyroid, RESPIRATORY: Diminished to auscultation CARDIOVASCULAR: Regular S1 S2, tachycardic GI: soft, normoactive bowel sounds, : No Renal angle tenderness; EXTREMITIES: No edema, no clubbing, MUSCULOSKELETAL: Left ankle immobilized NEURO: Awake; no lateralizing signs. SKIN: No Rash PSYCH; Flat affect Assessment & Plan Assessment/Plan (1) Ankle fracture: QUALIFIERS: Encounter type: initial encounter Fracture type: c losed Laterality: left Qualified Code(s): S82.892A - Other fracture of left lower leg, initial encounter for closed fracture PLAN: Plan Patient is a 30-year-old gentleman who presented with left ankle pain following a fall imaging studies demonstrated left ankle fracture with dislocation admitted to regular nursing floor for further management 1. Fall with left ankle fracture ? Imaging studies did show acute displaced trans-syndesmotic fracture of the lateral malleolus with associated displaced fractures of the posterior and medial malleoli and disruption of the mortise. Admitted to regular nursing floor managed with immobilization pain management with consultation placed to podiatry 2. Elevated blood pressure ? Probably reactive as a result of pain. Ordered hydralazine as needed for systolic blood pressure greater than 160 3. Chronic alcohol dependence with acute alcohol withdrawal - Patient patient started with phenobarb taper in addition to adjuvant medications including gabapentin, Bentyl, hydroxyzine and clonidine as needed for alcohol withdrawal symptoms. Patient was also placed on thiamine and folic acid. Plan is to consult addiction medicine in a.m. 4. Acute transaminitis ? Thought to be related to patient alcohol use disorder. Monitoring, right upper quadrant ultrasound ordered for subsequent eval. Repeated transaminases levels in a.m. 5. Class III obesity with BMI of 36.5 ? Complicating care weight loss advised 6. DVT prophylaxis ? Subcu heparin Time spent in the patient's overall evaluation,decision-making process, review of diagnostic data, adjustment of management, discussion with other providers, nursing nursing and ancillary staff involved in patient's care documentation, 50 Minutes Charges/Coding Visit Charges Inpatient E&M: 81389 Subs Hosp L3
[2025-07-11] MEDS: Thiamine Hydrochloride 100 MG Tablet PO (08:31)
--- NOTE | 2025-07-11 09:14 | PCM.PRE.AN2 ---
ASA Classification* ASA Classification ASA Classification: 2 and E Assessment & Plan Anesthesia* Anesthesia Assessment Anesthesia Assessment: Discussed sedation and/or anesthesia options, risks, benefits, and alternatives with patient/parents/legal guardian/POA. Questions invited. The patient/parents/legal guardian/POA seems to understand and agrees to proceed with anesthesia plan. Reviewed the physical assessment, medical history, allergy history and patient home medications list prior to surgery/procedure/anesthetic and documented any changes. Performed airway and anesthesia risk assessments. Anesthesia Type Anesthesia Type: General and Block Anesthesia Focused Assessment* Temperature: 98.1 F Pulse Rate: 113 Blood Pressure: 186/115 Respiratory Rate: 20 Pulse Ox: 97 Oxygen Flow Rate (L/min): 2 Airway Assessment Mouth opens: >3 cm Mallampati Score: II Labs Anesthesia Preop lab: CBC WBC, (4.4-11.0) 12.4 K/mm3 H Today, 05:15 RBC, (4.6-6.2) 4.23 M/mm3 L Today, 05:15 Hgb, (13.0-16.5) 14.5 g/dL Today, 05:15 Hct, (40-54) 41.5 % Today, 05:15 Plt Count, (150-450) 192 K/mm3 Today, 05:15 CHEMISTRY Potassium, (3.3-5.1) 3.8 mmol/L Today, 05:15 Sodium, (133-145) 143 mmol/L Today, 05:15 Magnesium, (1.5-2.2) 1.9 mg/dL 07/10/25, 21:52 BUN, (4-19) 8 mg/dL Today, 05:15 Creatinine, (0.70-1.20) 0.83 mg/dL Today, 05:15 Glucose, (70-99) 119 mg/dL H Today, 05:15 COAG PT, (11.7-14.9) 13.9 SECONDS 07/10/25, 21:52 Pre-Assessment Diagnosis/Proposed Procedure Planned Operative Procedure(s): ORIF Ankle Anesthesia History Anesthesia History - nutrition partner: Anesthesia History - nutrition partner Hx Hospitalization Any Problems With Anesthesia [ No 07/10/25 23:21 1 (Initial Baseline)] Any Problems With Anesthesia No 07/10/25 23:00 Cholinesterase deficiency No 07/10/25 23:00 You/Your Family Experience No 07/10/25 23:00 fever (hyperthermia) with Relationship Recent Exposure to Contagious No 07/10/25 23:00 Disease Does patient have nerve No 07/10/25 23:00 stimulator Patient instructed to have No 07/10/25 23:00 device shut off --Does patient have Pacemaker or ICD? When Was Last Pacemaker Check QUESTION #4 FULL TEXT: You/Your Family Experience fever (hyperthermia) with Anesthesia Last Oral Intake Last Oral intake: Last Oral Intake NPO since Meds taken in AM with sips of water? Meds patient instructed to take am of surgery PONV PONV - nutrition partner: PONV - nutrition partner Female HX of Motion Sickness HX of N/V After Surgery Non-Smoker Duration of Surgery greater than 60 minutes Number of Risk Factors PONV Score Height & Weight Height & Weight: Anesthesia: Height & Weight Height 6 ft 1 in 07/10/25 22:58 Weight: 125.5 kg 07/11/25 06:00 Body Mass Index (BMI) 36.6 07/11/25 06:00 Respiratory Assessment Respiratory Assessment - nutrition partner: Respiratory Tract Infection Hx - nutrition partner Hx Respiratory Tract Infection No 07/10/25 23:00 STOP Sleep Apnea STOP Sleep Apnea - nutrition partner: STOP Sleep Apnea - nutrition partner Hx Hypertension No 07/11/25 00:26 Hx Sleep Apnea No 07/11/25 00:26 CPAP BIPAP Do you snore loudly (louder Yes 07/11/25 00:26 than talking or can be heard Do you often feel tired/ Yes 07/11/25 00:26 fatigued/ sleepy during daytime? Has anyone observed you stop Yes 07/11/25 00:26 breathing during sleep? STOP Results Positive 07/11/25 00:26 QUESTION #5 FULL TEXT : Do you snore loudly (louder than talking or can be heard through closed doors)? Tobacco Use History Tobacco Use History - nutrition partner: Tobacco Use History - nutrition partner Tobacco Use Smoking Status Never smoker 07/11/25 00:26 Hx Tobacco Use No 07/11/25 00:26 Years Smoking Packs Smoked per Day Smoking Cessation Date was within the last 15 years Hx Smoking Cessation Date Hx Smoking Cessation Counseling Hematologic Medial History Hematologic Hx - nutrition partner: Hematologic Medical Hx - undercoater Hx of Blood Transfusion No 07/11/25 00:26 Hx of Transfusion in last 3 No 07/11/25 00:26 Months Date of Last Transfusion (if within last 3 months) Ever experience any problems No 07/11/25 00:26 with transfusion(s)? Specify any problems Hx of Preganancy in last 3 N/A 07/11/25 00:26 Months Nurse Filling Out Transfusion EVIZZO 07/11/25 00:26 & Questions: Date: 07/11/25 07/11/25 00:26 Time: 00:27 07/11/25 00:26 Patient unable to answer at this time (ie. confused, unrespo /Reproduction History /Reproductive History - nutrition partner: /Reproductive Hx- nutrition partner Hx Now No 07/10/25 23:00 Gestational Age (in weeks): EDC: Hx Hx Para Hx Section SAB No 07/10/25 23:00 Does the father of the baby or his family experience fever w Father of the baby Malignant Hypertension history comment Active Medications Active Medications: Current Medications Generic Name Dose Route Start Last Admin Trade Name Freq PRN Reason Stop Dose Admin Acetaminophen 1,000 mg 07/11/25 06:00 07/11/25 05:54 Acetaminophen 500 Mg Tablet PO Not Given Q8 [facility] Al Hydroxide/Mg Hydroxide 30 ml 07/11/25 07:57 Mag Hydrox/Al Hydrox/Simeth 30 Ml Udc PO Q6H PRN PRN dyspesia Clonidine 0.2 mg 07/11/25 01:30 07/11/25 02:08 Clonidine Hcl 0.2 Mg Tablet PO 0.2 mg BID [facility] Administration Protocol Dicyclomine HCl 20 mg 07/11/25 07:57 Dicyclomine 10 Mg Capsule PO Q6H PRN PRN abdominal discomfort Folic Acid 1 mg 07/11/25 08:30 Folic Acid 1 Mg Tablet PO DAILY@0800 [facility] Gabapentin 300 mg 07/11/25 07:57 Gabapentin 300 Mg Capsule PO Q8H PRN PRN moderate to severe anxiety Heparin Sodium (Porcine) 5,000 unit 07/11/25 10:00 Heparin Injection (Vial) 5,000 Unit/Ml Vial SC Q12 [facility] Hydralazine HCl 10 mg 07/11/25 01:29 07/11/25 05:04 Hydralazine 20 Mg/Ml Vial IV 10 mg Q4H PRN PRN Administration SBP more than 160 mmHg Protocol Hydromorphone HCl 1 mg 07/11/25 01:29 07/11/25 02:09 Hydromorphone 1 Mg/Ml Syringe IV 1 mg Q4H PRN PRN Administration Pain Score 6-10 or Pre PT/OT Hydroxyzine Pamoate 50 mg 07/11/25 07:57 Hydroxyzine Kkoi 25 Mg Capsule PO Q4H PRN PRN mild anxiety Sodium Chloride 250 mls @ 15 mls/hr 07/10/25 22:59 IV .[id number] PRN Saline Flush Sodium Chloride 250 mls @ 15 mls/hr 07/10/25 22:59 IV .[id number] PRN Additional IVPB Infusion Sodium Chloride 1,000 mls @ 75 mls/hr 07/11/25 00:32 07/11/25 00:46 IV 07/11/25 13:51 75 mls/hr .[id number] ASH[facility] Administration Lisinopril 10 mg 07/11/25 10:00 Lisinopril 10 Mg Tablet PO DAILY ASH[facility] Protocol Loperamide HCl 2 mg 07/11/25 07:57 Loperamide 2 Mg Capsule PO Q4H PRN PRN DIARRHEA/LOOSE STOOLS Lorazepam 2 mg 07/11/25 00:32 Lorazepam 2 Mg/Ml Syringe IV UD PRN CIWA score >/=15. Protocol Lorazepam 2 mg 07/11/25 00:32 07/11/25 06:51 Lorazepam 2 Mg/Ml Syringe IV 2 mg Q2H PRN PRN Administration CIWA score > 8 but <15 Protocol Lorazepam 2 mg 07/11/25 00:32 Lorazepam 1 Mg Tablet PO UD PRN CIWA score >/=15. Protocol Lorazepam 2 mg 07/11/25 00:32 Lorazepam 1 Mg Tablet PO Q2H PRN PRN CIWA score > 8 but <15 Protocol Nitroglycerin 0.4 mg 07/11/25 00:32 Nitroglycerin (Inpatient Use) 0.4 Mg Tab.Subl SL Q5M PRN CARDIAC/CHEST PAIN Ondansetron HCl 4 mg 07/11/25 01:31 07/11/25 06:51 Ondansetron 4 Mg/2 Ml Vial IV 4 mg Q6H PRN PRN Administration NAUSEA/VOMITING Ondansetron HCl 8 mg 07/11/25 07:57 Ondansetron 8 Mg Tablet PO Q8H PRN PRN NAUSEA Oxycodone HCl 5 mg 07/11/25 01:31 Oxycodone 5 Mg Tablet PO Q4H PRN PRN Pain Score 4-5 or Pre PT/OT Phenobarbital 97.2 mg 07/11/25 08:30 Phenobarbital 32.4 Mg Tablet PO 07/15/25 16:29 Q4H ASHLEY Taper Senna 2 tablet 07/11/25 07:57 Senna Tablet PO QHS PRN Constipation Senna/Docusate Sodium 2 tablet 07/11/25 10:00 Senna/Docusate Sodium 1 Tablet PO BID ASHLEY Sodium Chloride 10 - 40 ml 07/10/25 22:59 07/11/25 06:48 0.9% Saline Lock 10 Ml Syringe IV 10 ml UD PRN Administration SALINE FLUSH Thiamine HCl 100 mg 07/11/25 08:30 Thiamine Hydrochloride 100 Mg Tablet PO DAILYCM ASHLEY Tizanidine HCl 2 mg 07/11/25 01:31 Tizanidine Hcl 2 Mg Tablet PO Q8H PRN PRN MUSCLE SPASM Trazodone HCl 100 mg 07/11/25 07:57 Trazodone 100 Mg Tablet PO QHS PRN INSOMNIA PFSH Medical History Ankle fracture Torn ACL Medical History no medical history Home Medications ?Medication ?Instructions ?Recorded ?Last Taken ?Type NK 07/10/25 Unknown History Allergy/AdvReac Type Severity Reaction Status Date / Time No Known Allergies Allergy Verified 07/10/25 19:02 Social History Smoking Status: Never smoker Review of Systems (Anesthesia) ROS Narrative System reviewed and no additional complaints, except as documented.
[2025-07-11] MEDS: Lactated Ringers 1,000 ML 15 ML IV (10:04)
--- NOTE | 2025-07-11 10:36 | CON.PCM_ITS ---
Assessment & Plan Assessment/Plan (1) Fracture dislocation of left ankle: PLAN: Plan Evaluation performed. Reviewed left ankle xrays, also ordered and reviewed left ankle CT scan. There is trimalleolus ankle fracutre of the left ankle not in anatomic position. We discussed condition and treatment options. He discussed surgical intervention - open reduction internal fixation of the left ankle. He elected to proceed with surgical intervention. We discussed the procedure, rationale of the procedure, and the consent form was reviewed with him. He freely signed it. We will plan to proceed with that today. No weightbearing left foot. Keep left foot elevated. Elevated liver enzymes - per hospital medicine. HPI Consult Data Date of Consult: 07/11/25 HPI Narrative Reason for Consultation: Left ankle fracture HPI Narrative: LYDIA NGUYỄN, is a 30 M who presented to [facility] ER last night for left ankle injury. He relates he just finished up hunting and slipped on ice. He felt and hear cracking to his left ankle. He has muck boots on. He had a lot of pain. He called and presented to [facility] ER and found to have trimalleolus ankle fracture. Attempts at closed reduction was performed in ER but had difficulty with complete reduction. He has had a lot of pain. He has been admitted for further management. He also relates he has 3-4 double alcoholic drinks a day. It was found his liver enzymes are elevated. [facility] Medical History Ankle fracture Torn ACL Medical History no medical history Home Medications ?Medication ?Instructions ?Recorded ?Last Taken ?Type NK 07/10/25 Unknown History Allergy/AdvReac Type Severity Reaction Status Date / Time No Known Allergies Allergy Verified 07/10/25 19:02 Social History Smoking Status: Never smoker Physical Exam Const alert, oriented x3 and no apparent distress Constitutional Narrative: Left foot/ankle/leg with splint intact, CFT < 2 seconds to all toes left foot, able to dorsiflex and plantarflex toes with sensation intact. He relates to left ankle pain but appears controlled at this time. Lab / Micro Data 07/11/25 05:15 07/11/25 05:15 Labs: Laboratory Results - last 24 hr 07/10/25 21:52: WBC 11.3 H, RBC 4.25 L, Hgb 14.9, Hct 40.9, MCV 96.2 H, MCH 35.1 H, MCHC 36.4 H, RDW Std Deviation 41.8, RDW Coeff of Susi 12.0, Plt Count 185, MPV 9.0, Immature Gran % (Auto) 0.300, Neut % (Auto) 74.9 H, Lymph % (Auto) 17.5 L, Vance % (Auto) 6.2, Eos % (Auto) 0.7, Baso % (Auto) 0.4, Absolute Neuts (auto) 8.4 H, Absolute Lymphs (auto) 1.97, Nucleated RBC % 0, PT 13.9, INR 1.1, APTT 25.6, Sodium 140, Potassium 3.7, Chloride 102, Carbon Dioxide 22.1, Anion Gap 15, BUN 7, Creatinine 0.84, Estim Creat Clear Calc 180.04, Est GFR (MDRD) Non-Af 120, BUN/Creatinine Ratio 8.5 L, Glucose 107 H, Calcium 8.9, Magnesium 1.9, Total Bilirubin 0.75, AST 228 H, ALT 253 H, Alkaline Phosphatase 74, Total Creatine Kinase 184, Total Protein 7.4, Albumin 4.5, Globulin 2.8, Albumin/Globulin Ratio 1.6 07/11/25 05:15: WBC 12.4 H, RBC 4.23 L, Hgb 14.5, Hct 41.5, MCV 98.1 H, MCH 34.3 H, MCHC 34.9, RDW Std Deviation 43.8, RDW Coeff of Susi 12.1, Plt Count 192, MPV 9.2, Immature Gran % (Auto) 0.400, Neut % (Auto) 75.3 H, Lymph % (Auto) 15.5 L, Vance % (Auto) 7.9, Eos % (Auto) 0.5, Baso % (Auto) 0.4, Absolute Neuts (auto) 9.4 H, Absolute Lymphs (auto) 1.92, Nucleated RBC % 0, Sodium 143, Potassium 3.8, Chloride 102, Carbon Dioxide 24.7, Anion Gap 16 H, BUN 8, Creatinine 0.83, Estim Creat Clear Calc 178.93, Est GFR (MDRD) Non-Af 120, BUN/Creatinine Ratio 9.5 L, Glucose 119 H, Calcium 9.1, Total Bilirubin 1.31 H, AST 177 H, ALT 232 H, Alkaline Phosphatase 74, Total Protein 7.2, Albumin 4.6, Globulin 2.6, Albumin/Globulin Ratio 1.7 Imaging Radiology Impression Ankle X-Ray 07/10/25 19:27 IMPRESSION: As above. Reading Location: [facility] Ankle X-Ray 07/10/25 20:25 IMPRESSION: As above. Reading Location: [facility] Ankle X-Ray 07/10/25 21:40 IMPRESSION: As above. Reading Location: [facility] Lower Extremity CT 07/11/25 00:00 IMPRESSION: Acute displaced trans-syndesmotic fracture of the lateral malleolus with associated displaced fractures of the posterior and medial malleoli and disruption of the mortise. Lezama B-stage 4. Reading Location: [facility]
[2025-07-11] MEDS: fentaNYL 100 MCG/2 ML Ampul IV (11:13)
[2025-07-11] MEDS: Cefazolin 1 GM/5 ML Vial 3 GM IV (11:23)
--- NOTE | 2025-07-11 12:00 | RAD_ITS ---
PROCEDURE: ANKLE MIN 3 VIEWS 07/11/2025 REASON FOR EXAM: ORIF TECHNIQUE: Procedure Code: RADANK Modality: DX Procedure: ANKLE MIN 3 VIEWS Laterality: Left COMPARISON: Ankle x-ray 07/10/2025. FINDINGS: Bones: Status post correction of distal tibia and fibula with metallic hardware. Joints: Preserved. Soft tissues: No soft tissue abnormalities. RAD/Ankle min 3 Views IMPRESSION: Postsurgical changes for correction of trimalleolar fractures. Near anatomical alignment. Reading Location: [id number]
[2025-07-11] MEDS: Midazolam 2 MG/2 ML Syringe 4 MG IV (13:11)
--- NOTE | 2025-07-11 14:00 | RAD_ITS ---
PROCEDURE: ANKLE MIN 3 VIEWS 07/11/2025 REASON FOR EXAM: POST OP TECHNIQUE: Procedure Code: RADANK Modality: DX Procedure: ANKLE MIN 3 VIEWS Laterality: COMPARISON: Left ankle radiograph performed on 07/10/2025. FINDINGS: Redemonstrated left ankle trimalleolar fracture status post ORIF with reestablish of ankle mortise. No evidence of hardware complication. RAD/Ankle min 3 Views IMPRESSION: Redemonstrated left ankle trimalleolar fracture status post ORIF with reestabli sh of ankle mortise. No evidence of hardware complication. Reading Location: [facility]
--- NOTE | 2025-07-11 14:12 | PCM.OPRPT ---
Operative Report (Standard) Operative Information Date of Procedure: 07/11/25 Pre-Operative Diagnosis: Trimalleolus ankle fracture, left Post-Operative Diagnosis: Same Surgery/Procedure Performed: Open reduction internal fixation left ankle manager payment: Yes Irrigation Tax Assessor Collector: Cierra Mishra Tasks completed by assistant toddler teacher: Closing, Implanting device and Retracting Type of Anesthesia: Local and Spinal RN Documented Start/Stop Times: Operation Date: 07/11/25 12:20 Case Time Into Pre-Op 07/11/25 09:55 Anesthesia Start 07/11/25 11:05 Into Room 07/11/25 11:05 Procedure Start 07/11/25 11:32 Procedure End 07/11/25 13:42 Anesthesia End 07/11/25 13:47 Out of Room 07/11/25 13:47 Into Recovery 07/11/25 13:50 Out of Recovery 07/11/25 14:20 Procedure Start Time: 11:32 Procedure Stop Time: 13:42 Select all DRAINS/GRAFTS/IMPLANTS that apply: Implanted device (Andrew fibular plate and screws, SynchFix - left ankle) Implanted device details: ORIF left ankle, see op report Estimated Blood Loss: 10mL Specimen collected: No Description of surgery: Indications: 30 year old gentleman who sustained a displaced left ankle fracture, presented to ER yesterday, was admitted for pain control and surgical intervention. Pre operative left ankle and CT scan was reviewed and showed displaced left trimalleolus ankle fracture. Discussed options with patient and he elected to proceed with open reduction internal fixation. The procedure was reviewed with him, reviewed rationale of procedure, possible benefits vs risks, goals, expectations and estimated healing time. Patient was informed the risks include but not limited to pain, bleeding, blood clots, infection, need for further surgery, delayed healing, nonhealing, numbness, loss of limb, loss of life. Advised on the possibility of post traumatic arthritis as well. He expressed understanding and agreement, the consent form was reviewed with him and he freely signed it. No guarantees or warranties were given nor implied. Operative Procedure: The patient was brought back to the operating room, the patient received spinal anesthesia with a left lower extremity popliteal and saphenous nerve block per the anesthesiologist. The patient was placed on the operating room table in the supine position with a safety belt around his waist. The patient received 3g of IV Ancef for antibiotic prophylaxis. A well padded pneumatic tourniquet was applied around the patient's left thigh. A timeout was performed and the patient was properly identified and surgical plan confirmed. The left below knee splint was removed and it was noted the ankle was noted to be very unstable consistent with the ankle fracture injury. There was also noted to be some small mild superficial fracture blisters to the medial posterior ankle and they were out of the way of the incision site. The patient's left foot ankle and leg were scrubbed, prepped, and draped in the usual aseptic fashion. Left ankle Open Reduction Internal Fixation: It was again noted the ankle was noted to be unstable, preoperative left ankle xrays and CT scan reviewed which confirmed fracture with displacement consistent with trimalleolar ankle fracture. The left foot and ankle were exsanguinated via elevation for several minutes and the left thigh pneumatic tourniquet was inflated in 300mmHg. Using a 15 blade, a skin incision was made overlying the lateral malleolus. Careful dissection was completed down to the lateral malleolus fracture. The periosteum was left intact. There was a malrotated displaced long oblique lateral malleolus fracture. The fibula was brought out to length and was rotated back to normal position and held in reduced position via a lobster bone reducing forceps, and was checked and confirmed under fluoroscopic guidance. The fracture was fixated using rigid open reduction internal fixation technique with 1 Andrew contoured lateral malleolar plate, which was applied across the fracture site using all appropriate lengths of 2.7mm locking screws distal to fracture and 2 x 2.5mm cortical screws and 3.5mm locking screws proximal to fracture, all using rigid open reduction internal fixation technique. There fracture was reduced, very stable, and in good position. This was confirmed visually as well as using intra operative fluoroscopy. A longitudinal skin incision was made over the medial malleolus using a 15 blade, blunt and sharp dissection was completed through subcutaneous tissue with care to protect the saphenous vein and nerve branches. Soft tissue was gently elevated to expose the fracture site. The periosteum was reflected only as necessary to visualize reduction. Interposed tissue were removed, and the fracture edges were cleared. Anatomic reduction of the medial malleolar fracture was achieved manually and checked under fluoroscopic guidance. Once satisfactory alignment was confirmed, two guide wires for 4.0 mm [place] cannulated screws were inserted from distal-medial to proximal-lateral across the fracture site, ensuring parallel trajectory and avoiding the plafond. Position was verified fluoroscopically. After appropriate measurement, two 4.0 mm [place] cannulated screws were placed over the guidewires maintaining compression across the fracture. Final fluoroscopic images confirmed stable fixation, anatomic reduction, and appropriate hardware placement with no joint penetration. There was also noted to be instability of the distal syndesmosis, and the syndesmosis was reduced, and fixated using one Andrew Synchfix and appropriately tensioned. At this time, the distal ankle syndesmosis was stressed with and it was noted be be stable with no gapping present. Intra operative fluoroscopy was used to confirm proper reduction and placement of the ankle and hardware. The hardware was in appropriate position and was not violating the ankle joint intra articularly. At this time there was noted to be excellent stability to the ankle joint and of the reduced and fixated fracture sites, range of motion was smooth and gliding normally. There was no popping, clicking, or crepitus present. Intraoperative fluoroscopy was used to check the site and it was noted fibular length and tib fib overlap was normal, ankle mortise with medial and lateral gutters in normal position/alignment with good positioning of the plate, screws, and tight rope. There was good bone to bone alignment of the fracture sites. There was excellent stability to the ankle and fracture sites. No screws were in the joint. The ankle was stressed under fluoroscopy and negative anterior drawer, normal talar tilt, no medial gutter gapping with external stress test, and no gapping or instability with Cotton test as noted above. The surgical site was flushed out with copious amounts of normal saline solution. The periosteum was reapproximated using 3-0 Vicryl, the subcutaneous tissue was reapproximated using 3-0 Vicryl, and the skin was 3-0 Monocryl. An additional 10mL of 0.25% Bupivacaine plain was given as a left ankle nerve block per ok by anesthesia team. Cavilon was painted to the skin incision sites and steristrips were applied across the sutured skin incisions. Hemostasis maintained with no significant bleeding. The left thigh pneumatic tourniquet was deflated (total time was 120 minutes). There was immediate return of perfusion to left foot. CFT < 2 seconds to all toes with intact pedal pulses. A dressing was applied which consisted of Betadine soaked adaptic, 4x4 gauze, Kerlix, Webril, adrian bandages, and well padded below knee posterior splint w/ heel offloaded. Also of note, all vital structures, including all vital neurovascular and tendon structures were properly identified, protected and retracted as necessary. Of note the fracture blisters of the medial posterior ankle were not incised through and tissue was left intact. The patient tolerated the above procedure well and anesthesia well with no complications. The patient was transported to the recovery room in good condition and vital signs stable. Post op orders were placed, no weightbearing left foot, keep left foot elevated. Keep dressing/splint clean, dry and intact. He will be followed as inpatient at this time. Surgical Findings: As noted above Complications Complications: No
[2025-07-11] MEDS: hydrOXYzine PAM 25 MG Capsule 50 MG PO ×2 (15:10→19:40)
[2025-07-11] MEDS: 0.9% Normal Saline (250mL Bag) 250 ML 15 ML IV (21:49)
[2025-07-11] MEDS: Cefazolin 1 GM/50 ML BAG IV (21:53)
[2025-07-11] MEDS: Heparin Injection (Vial) 5,000 UNIT/ML VIAL 5000 UNIT SC (21:57)
[2025-07-11] MEDS: Senna/Docusate Sodium 1 Tablet 2 TABLET PO (21:57)
--- NOTE | 2025-07-11 22:04 | NURSING ---
encouraged pt to attempt to get out of bed. pt refusing at this time.
[2025-07-12] VITALS (7 sets, daily range): BP systolic 104–154; BP diastolic 65–97; PULSE 86–103; RESP 16–18; TEMP 36.1–37.1; O2SAT 93–100; BMI 35.6
[2025-07-12] MEDS: hydrOXYzine PAM 25 MG Capsule 50 MG PO ×3 (04:32→21:03)
[2025-07-12] MEDS: Cefazolin 1 GM/50 ML BAG IV ×2 (04:59→14:17)
[2025-07-12 06:58] LABS: Hematocrit 39.2 % (40-54); Hemoglobin 13.4 g/dL (13.0-16.5); Immature Granulocytes Count 0.030 X10^3/uL (0.0-0.0); Mean Corp Hgb Conc 34.2 g/dL (32-36); Mean Corpuscular Volume 100.3 fL (80-94); Mean Platelet Vol. 9.4 fl (6.2-12.0); NRBC Flagged by Analyzer 0 % (0-5); Platelet Count 158 K/mm3 (150-450); RBC Distribution Width CV 12.0 % (11.6-14.6); RBC Distribution Width SD 44.0 fl (35.1-43.9); Red Blood Count 3.91 M/mm3 (4.6-6.2); White Blood Count 9.3 K/mm3 (4.4-11.0)
[2025-07-12 07:27] LABS: AST(SGOT) 101 U/L (<=37); Alanine Aminotransfer ALT/SGPT 146 U/L (<=46); Albumin, Serum 4.4 g/dL (3.5-5.0); Alkaline Phosphatase 71 U/L (40-129); Anion Gap 11 (5-15); BUN 10 mg/dL (4-19); BUN/Creat Ratio 9.4 RATIO (10-20); Calcium,Total 9.3 mg/dL (7.6-11.0); Carbon Dioxide 28.0 mmol/L (21.0-32.0); Chloride 97 mmol/L (98-108); Estimated Creatinine Clearance 136.76 ml/min (50-250); Globulin 2.7 g/dL (2.2-4.2); Glucose 119 mg/dL (70-99); Magnesium 2.0 mg/dL (1.5-2.2); Potassium 3.8 mmol/L (3.3-5.1)
--- NOTE | 2025-07-12 07:36 | PCM.POST.ANE ---
Anesthesia: Postop Eval I Current Vital Signs Temperature: 97 F Pulse Rate: 102 Blood Pressure: 104/65 Respiratory Rate: 16 Pulse Ox: 93 Oxygen Delivery Method: Room Air Assessment Airway patent: Yes Spontaneous unlabored respirations: Yes Mental status: Awake and Calm nausea: No Vomiting: No Anesthesia Complication: No Fluid Hydration Crystalloid volume administer (ml): 800 Total IV fluid infused: 800 Progress Note Anesthesia document: Postop Eval 1 completed: Yes
--- NOTE | 2025-07-12 07:43 | PCM.POSTANE2 ---
Anesthesia Postop Eval I Sum Postop Eval Completion status Anesthesia document: Postop Eval 1 completed: Yes Anesthesia Postop Eval I Summary Anesthesia Postop Eval I Summary: Anesthesia Postop Eval I: Assessment Summary Airway patent Yes 07/12/25 07:37 Spontaneous unlabored Yes 07/12/25 07:37 respirations Mental status Awake,Calm 07/12/25 07:37 nausea No 07/12/25 07:37 Vomiting No 07/12/25 07:37 Anesthesia Postop Eval I: Fluid Summary Crystalloid volume administer 800 07/12/25 07:37 (ml) Colloids volume administered ( ml) Blood Product volume administered (ml) Total IV fluid infused 800 07/12/25 07:37 Anesthesia Postop Eval I: Summary Notes Anesthesia Complication No 07/12/25 07:37 Anesthesia Complication Comment: Post-operative progress note Anesthesia: Postop Eval II Evaluation Mental status: Awake Pain Level: 1 nausea: No Vomiting: No
--- NOTE | 2025-07-12 08:37 | PN.HOSP_ITS ---
Reason for Visit Chief Complaint: Sleep while walking and left ankle gave out today Subjective Subjective Having pain in his ankle. Objective Data Objective Data Vital Signs: Vital Signs Temp Pulse Resp BP Pulse Ox O2 Del Method O2 Flow Rate 36.1 C L 102 H 16 104/65 93 Room Air 2 07/12/25 07:37 07/12/25 07:37 07/12/25 07:37 07/12/25 07:37 07/12/25 07:37 07/12/25 07:37 07/12/25 07:25 FiO2 98 07/10/25 20:00 Oxygen Flow Rate (L/min) [1 ( 5 Initial Baseline)] Oxygen Flow Rate (L/min) 2 Oxygen Delivery Method [1 ( Nasal Cannula Initial Baseline)] Oxygen Delivery Method Room Air Weight: 121.8 kg Body Mass Index (BMI) 35.6 Intake & Output: Intake and Output for Last 24 Hours 07/10/25 07/11/25 07/12/25 23:59 23:59 23:59 Intake Total 1000 / 1000 2490 / 2490 800 / 800 Output Total 670 / 670 Balance 1000 / 1000 1820 / 1820 800 / 800 Lab / Micro Data 07/12/25 06:45 07/12/25 06:45 Labs: Laboratory Results - last 24 hr 07/12/25 06:45: WBC 9.3, RBC 3.91 L, Hgb 13.4, Hct 39.2 L, MCV 100.3 H, MCH 34.3 H, MCHC 34.2, RDW Std Deviation 44.0 H, RDW Coeff of Susi 12.0, Plt Count 158, MPV 9.4, Immature Gran % (Auto) 0.300, Neut % (Auto) 68.4, Lymph % (Auto) 18.9 L , [place] % (Auto) 10.4 H, Eos % (Auto) 1.7, Baso % (Auto) 0.3, Absolute Neuts (auto) 6.4, Absolute Lymphs (auto) 1.76, Nucleated RBC % 0, Sodium 136, Potassium 3.8, Chloride 97 L, Carbon Dioxide 28.0, Anion Gap 11, BUN 10, Creatinine 1.07, Estim Creat Clear Calc 136.76, Est GFR (MDRD) Non-Af 95, B UN/Creatinine Ratio 9.4 L, Glucose 119 H, Calcium 9.3, Phosphorus 3.3, Magnesium 2.0, Total Bilirubin 2.24 H, AST 101 H, ALT 146 H, Alkaline Phosphatase 71, Total Protein 7.1, Albumin 4.4, Globulin 2.7, Albumin/Globulin Ratio 1.6 Radiography Diagnostic Testing: Radiology Impression Ankle X-Ray 07/11/25 12:00 IMPRESSION: Postsurgical changes for correction of trimalleolar fractures. Near anatomical alignment. Reading Location: [facility] Ankle X-Ray 07/11/25 14:00 IMPRESSION: Redemonstrated left ankle trimalleolar fracture status post ORIF with reestablish of ankle mortise. No evidence of hardware complication. Reading Location: [facility] Physical Exam Const alert and no apparent distress HEENT head/scalp atraumatic and moist oral mucous membranes Resp normal respiratory effort and no retractions GI normal to inspection, nondistended, normoactive bowel sounds, soft to palpation, non-tender, non-distended and hepatosplenomegaly Extremity Extremity Narrative: Left ankle in cast. Neuro oriented x3 and moves all extremities Sensorium / Orientation: awake and alert Assessment & Plan Assessment/Plan (1) Ankle fracture: QUALIFIERS: Encounter type: initial encounter Fracture type: c losed Laterality: left Qualified Code(s): S82.892A - Other fracture of left lower leg, initial encounter for closed fracture PLAN: Plan Fall with left ankle fracture * Imaging studies did show acute displaced trans-syndesmotic fracture of the lateral malleolus with associated displaced fractures of the posterior and medial malleoli and disruption of the mortise. * Pt underwent ORIF left ankle on 07/11 Chronic alcohol dependence with acute alcohol withdrawal * Patient patient started with phenobarb taper in addition to adjuvant medications including gabapentin, Bentyl, hydroxyzine and clonidine as needed for alcohol withdrawal symptoms. Patient was also placed on thiamine and folic acid. Plan is to consult addiction medicine in a.m. Acute transaminitis * worsening * Thought to be related to patient alcohol use disorder. Monitoring, right upper quadrant ultrasound ordered for subsequent eval. Chronic conditions: * Class III obesity with BMI of 36.5? Complicating care weight loss advised DVT prophylaxis ? Subcu heparin Charges/Coding Visit Charges Inpatient E&M: 81583 Subs Hosp L2
--- NOTE | 2025-07-12 08:40 | US_ITS ---
PROCEDURE: ABDOMEN LIMITED 07/12/2025 REASON FOR EXAM: TRANSAMINITIS TECHNIQUE: Procedure Code: USABDL Modality: US Procedure: ABDOMEN LIMITED COMPARISON: None FINDINGS: Liver: Mildly enlarged at 19.5 cm. Liver is diffusely echogenic with mild loss of periportal echoes and decreased acoustic penetration. No mass. Portal vein is patent and hepatopetal. Gallbladder: No stones, sludge, wall thickening or tenderness. Common bile duct: Normal measuring 4 mm. Pancreas: Imaged portions are unremarkable. Kidneys: The right kidney measures 12.5 x 5.8 x 5.6. No collecting system dilation, calculus or mass. Peritoneal Findings: No ascites US/Abdomen Limited IMPRESSION: Diffuse hepatocellular disease. Consider fatty infiltration among other causes . Reading Location: [id number]
[2025-07-12] MEDS: Thiamine Hydrochloride 100 MG Tablet PO (09:16)
[2025-07-12] MEDS: Senna/Docusate Sodium 1 Tablet 2 TABLET PO ×2 (09:16→21:03)
--- NOTE | 2025-07-12 11:33 | ADDICTION ---
Attempted to meet with the patient; however, the patient is currently visiting with family. Will make another attempt to meet privately tomorrow morning.
--- NOTE | 2025-07-12 12:05 | CASEMGMT ---
KAYE ARAUJO Assessment: Face to Face with pt for initial transition planning/care coordination assessment. RN VAN introduced self and role at [facility], pt voices understanding and consents to assessment. Pt is A&O x4 and answers all questions appropriately at this time. Pt sitting up in bed in no distress. Care providers, pharmacy, and demographics verified/updated. Admitting Dx: L ankle fx, dislocation Strata Score: 2 PCP:[facility] Specialists:[facility] in the past Preferred Pharmacy: [facility] Retail Insurance: [place] Prescription Benefit: yes LNOK: Tom Ortega, father Living Arrangements: Pt lives with father in a single story home with a threshold to enter. Pt reports his two children are at the home sometimes. Pt reports being I in ADL/IADLs prior to this hospitalization. Pt denies concerns at home. Transportation: Pt drives self and denies concerns with transportation. Pt father can assist with transportation as well. DME:[facility], walk in shower with grab bars HHC/SNF: Denies hx of Pt states no concerns with going home at time of dc. No PT or OT recommended. Pt states he is a member of the [employer] and they have DME that pt can have. Pt father plans to obtain a walker or w/c for pt prior to dc. Pt is aware that if he needs assistance with this that the RN VAN can help. Pt states he does not smoke cigarettes, smokes marijuana at times. Pt states he has 3-4 liquor drinks per night. Pt denies need for cessation resources for this. Pt states he is interested in mental health resources. Updated SW. Pt states no further concerns/needs. CM to follow. Advised pt to ask CM if any further questions/concerns/needs arise, voices understanding. Pt Goal: Home Plan: Home, pt father to obtain DME. Rosaura RESTREPO CM
--- NOTE | 2025-07-12 17:22 | VDLE_ITS ---
Reason For Study Reason For Study: LLE Pain RIGHT LEFT CFV is compressible, spontaneous, phasic, competent GSV from SFJ to Prox calf is compressible and demonstrates normal augmentation. GSV mid and dist calf non visualized. Procedure CFV is compressible, spontaneous, phasic, competent, This is a venous duplex using B-mode, color flow and and demonstrates normal augmentation. spectral Doppler. FV is compressible, spontaneous, phasic, competent Exam performed portable in patient room. and demonstrates normal augmentation. Limited views were obtained due cast, bandages and POP V is compressible, spontaneous, phasic, competent splints. and demonstrates normal augmentation. A preliminary report was called and/or faxed to [facility] T/P Trunk is compressible. - M/S 3 metal stamping machine operator. Unable to visualize PTV and Peroneal Veins. VL/Venous Duplex US, Unilateral Interpretation Summary Deep veins of the left lower extremity are patent and compressible segmentally. There is no evidence of left lower extremity deep vein thrombosis. Valvular competence appears intact within the p roximal deep venous system on the left . The left posterior tibial and peroneal veins were not visualized. The left grea t saphenous vein appears patent and compressible, but was not visualized in the left mid- and distal calf. The righ t common femoral vein is patent and compressible . Ordering Physician: Jalen Matute Referring Physician: Blanca Eckert Performed By: Kapil Ochoa RVT and Student
--- NOTE | 2025-07-12 17:25 | PN_ITS ---
Subjective Subjective Patient was seen today for follow up on left ankle. He relates the block has worn off, and he has pain to left ankle, he is resting comfortably in bed at this time. He relates to soreness/pain to left calf. No other complaints. Objective Data Objective Data Vital Signs: Vital Signs Temp Pulse Resp BP Pulse Ox O2 Del Method O2 Flow Rate 98.1 F 98 18 145/75 H 99 Room Air 3 07/12/25 15:57 07/12/25 15:57 07/12/25 15:57 07/12/25 15:57 07/12/25 15:57 07/12/25 15:57 07/12/25 08:30 FiO2 98 07/10/25 20:00 Oxygen Flow Rate (L/min) [1 ( 5 Initial Baseline)] Oxygen Flow Rate (L/min) 3 Oxygen Delivery Method [1 ( Nasal Cannula Initial Baseline)] Oxygen Delivery Method Room Air Weight: 121.8 kg Body Mass Index (BMI) 35.6 Intake & Output: Intake and Output for Last 24 Hours 07/10/25 07/11/25 07/12/25 23:59 23:59 23:59 Intake Total 1000 / 1000 2490 / 2490 850 / 850 Output Total 670 / 670 Balance 1000 / 1000 1820 / 1820 850 / 850 Lab / Micro Data 07/12/25 06:45 07/12/25 06:45 Labs: Laboratory Results - last 24 hr 07/12/25 06:45: WBC 9.3, RBC 3.91 L, Hgb 13.4, Hct 39.2 L, MCV 100.3 H, MCH 34.3 H, MCHC 34.2, RDW Std Deviation 44.0 H, RDW Coeff of Susi 12.0, Plt Count 158, MPV 9.4, Immature Gran % (Auto) 0.300, Neut % (Auto) 68.4, Lymph % (Auto) 18.9 L , [place] % (Auto) 10.4 H, Eos % (Auto) 1.7, Baso % (Auto) 0.3, Absolute Neuts (auto) 6.4, Absolute Lymphs (auto) 1.76, Nucleated RBC % 0, Sodium 136, Potassium 3.8, Chloride 97 L, Carbon Dioxide 28.0, Anion Gap 11, BUN 10, Creatinine 1.07, Estim Creat Clear Calc 136.76, Est GFR (MDRD) Non-Af 95, B UN/Creatinine Ratio 9.4 L, Glucose 119 H, Hemoglobin A1c 5.0, Calcium 9.3, Phosphorus 3.3, Magnesium 2.0, Total Bilirubin 2.24 H, AST 101 H, ALT 146 H, Alkaline Phosphatase 71, Total Protein 7.1, Albumin 4.4, Globulin 2.7, Albumin/Globulin Ratio 1.6 Physical Exam Const alert, oriented x3 and no apparent distress Constitutional Narrative: Left foot/ankle/leg with splint intact, CFT < 2 seconds to all toes left foot, able to dorsiflex and plantarflex toes with sensation intact. He relates to left ankle pain but appears controlled at this time. Also relates to some calf pain on the left calf. Assessment & Plan Assessment/Plan (1) Fracture dislocation of left ankle: PLAN: Plan Evaluation performed. s/p ORIF left trimalleolar ankle fracture on 07/11/2025. Keep splint clean, dry and intact. No weightbearing left foot. Keep left foot elevated. Left calf pain - ordered venous doppler for further evaluation. Pain management - patient on oxycodone, also on gabapentin Elevated liver enzymes - per hospital medicine. Podiatry will continue to follow.
[2025-07-12] MEDS: 0.9% Saline Lock 10 ML Syringe IV (21:02)
[2025-07-12] MEDS: Heparin Injection (Vial) 5,000 UNIT/ML VIAL 5000 UNIT SC (21:08)
[2025-07-13 01:26] VITALS: BP 108/75; PULSE 77; RESP 18; O2SAT 97
[2025-07-13 04:21] VITALS: BP 134/90; PULSE 88; RESP 18; TEMP 36.8; O2SAT 96
[2025-07-13] MEDS: hydrOXYzine PAM 25 MG Capsule 50 MG PO (04:27)
[2025-07-13 05:34] VITALS: BMI 35.5
[2025-07-13 06:32] LABS: Hematocrit 36.4 % (40-54); Hemoglobin 13.1 g/dL (13.0-16.5); Immature Granulocytes Count 0.050 X10^3/uL (0.0-0.0); Mean Corp Hgb Conc 36.0 g/dL (32-36); Mean Corpuscular Volume 97.1 fL (80-94); Mean Platelet Vol. 9.4 fl (6.2-12.0); NRBC Flagged by Analyzer 0 % (0-5); Platelet Count 155 K/mm3 (150-450); RBC Distribution Width CV 11.9 % (11.6-14.6); RBC Distribution Width SD 42.4 fl (35.1-43.9); Red Blood Count 3.75 M/mm3 (4.6-6.2); White Blood Count 10.2 K/mm3 (4.4-11.0)
[2025-07-13 07:15] LABS: AST(SGOT) 62 U/L (<=37); Alanine Aminotransfer ALT/SGPT 101 U/L (<=46); Albumin, Serum 4.1 g/dL (3.5-5.0); Alkaline Phosphatase 71 U/L (40-129); Anion Gap 12 (5-15); BUN 11 mg/dL (4-19); BUN/Creat Ratio 10.8 RATIO (10-20); Calcium,Total 9.3 mg/dL (7.6-11.0); Carbon Dioxide 26.6 mmol/L (21.0-32.0); Chloride 95 mmol/L (98-108); Estimated Creatinine Clearance 147.75 ml/min (50-250); Globulin 2.7 g/dL (2.2-4.2); Glucose 99 mg/dL (70-99); Potassium 3.7 mmol/L (3.3-5.1)
[2025-07-13 08:26] VITALS: BP 149/83; PULSE 89; RESP 16; TEMP 37.3; O2SAT 96
[2025-07-13] MEDS: Senna/Docusate Sodium 1 Tablet 2 TABLET PO (08:28)
[2025-07-13] MEDS: Thiamine Hydrochloride 100 MG Tablet PO (08:28)
[2025-07-13] MEDS: Heparin Injection (Vial) 5,000 UNIT/ML VIAL 5000 UNIT SC (08:29)
--- NOTE | 2025-07-13 08:49 | PN.HOSP_ITS ---
Reason for Visit Chief Complaint: Sleep while walking and left ankle gave out today Subjective Subjective Still with ankle pain. Objective Data Objective Data Vital Signs: Vital Signs Temp Pulse Resp BP Pulse Ox O2 Del Method O2 Flow Rate 37.3 C 89 16 149/83 H 96 Room Air 3 07/13/25 08:26 07/13/25 08:26 07/13/25 08:26 07/13/25 08:26 07/13/25 08:26 07/13/25 08:26 07/12/25 08:30 FiO2 98 07/10/25 20:00 Oxygen Flow Rate (L/min) [1 ( 5 Initial Baseline)] Oxygen Flow Rate (L/min) 3 Oxygen Delivery Method [1 ( Nasal Cannula Initial Baseline)] Oxygen Delivery Method Room Air Weight: 121.7 kg Body Mass Index (BMI) 35.5 Intake & Output: Intake and Output for Last 24 Hours 07/11/25 07/12/25 07/13/25 23:59 23:59 23:59 Intake Total 2490 / 2490 1650 / 1650 800 / 800 Output Total 670 / 670 950 / 950 Balance 1820 / 1820 700 / 700 800 / 800 Lab / Micro Data 07/13/25 06:16 07/13/25 06:16 Labs: Laboratory Results - last 24 hr 07/12/25 06:45: Hemoglobin A1c 5.0 07/13/25 06:16: WBC 10.2, RBC 3.75 L, Hgb 13.1, Hct 36.4 L, MCV 97.1 H, MCH 34.9 H, MCHC 36.0 D, RDW Std Deviation 42.4, RDW Coeff of Susi 11.9, Plt Count 155, MPV 9.4, Immature Gran % (Auto) 0.500, Neut % (Auto) 64.1, Lymph % (Auto) 18.9 L , [place] % (Auto) 12.9 H, Eos % (Auto) 3.3, Baso % (Auto) 0.3, Absolute Neuts (auto) 6.5, Absolute Lymphs (auto) 1.93, Nucleated RBC % 0, Sodium 133, Potassium 3.7, Chloride 95 L, Carbon Dioxide 26.6, Anion Gap 12, BUN 11, Creatinine 0.99, Estim Creat Clear Calc 147.75, Est GFR (MDRD) Non-Af 105, BUN/Creatinine Ratio 10.8, Glucose 99, Calcium 9.3, Total Bilirubin 1.69 H, AST 62 H, ALT 101 H, Alkaline Phosphatase 71, Total Protein 6.8, Albumin 4.1, Globulin 2.7, Albumin/Globulin Ratio 1.5 Physical Exam Const alert and no apparent distress HEENT head/scalp atraumatic and moist oral mucous membranes Resp normal respiratory effort, no retractions, no use of accessory muscles and clear to auscultation bilaterally Cardio regular rate, regular rhythm, S1 normal heart sound and S2 normal heart sound GI normal to inspection, nondistended, normoactive bowel sounds and soft to palpation Extremity Extremity Narrative: cast on LLE. Neuro Sensorium / Orientation: awake and alert Assessment & Plan Assessment/Plan (1) Ankle fracture: QUALIFIERS: Encounter type: initial encounter Fracture type: c losed Laterality: left Qualified Code(s): S82.892A - Other fracture of left lower leg, initial encounter for closed fracture PLAN: Plan Fall with left ankle fracture * Imaging studies did show acute displaced trans-syndesmotic fracture of the lateral malleolus with associated displaced fractures of the posterior and medial malleoli and disruption of the mortise. * Pt underwent ORIF left ankle on 07/11 Chronic alcohol dependence with acute alcohol withdrawal * Patient patient started with phenobarb taper in addition to adjuvant medications including gabapentin, Bentyl, hydroxyzine and clonidine as needed for alcohol withdrawal symptoms. Patient was also placed on thiamine and folic acid. Plan is to consult addiction medicine in a.m. Acute transaminitis * trending down. * Thought to be related to patient alcohol use disorder. Monitoring, right upper quadrant ultrasound ordered for subsequent eval. Chronic conditions: * Class III obesity with BMI of 36.5? Complicating care weight loss advised DVT prophylaxis ? Subcu heparin
--- NOTE | 2025-07-13 11:54 | DS.PCM_ITS ---
Providers Date of Admission: 07/10/25 Primary Care Physician: Dr. Blanca Eckert MD Consultations 07/11/25 00:32 Consult: Podiatry Routine Consulting Provider: Jalen Matute Reason for Consult: left ankle fracture with dislocatiuon EMERGENT Consult: No MD Notified: Yes Date Notified: 07/10/25 Time Notified: 22:52 Method of Notification: ED Physician Initiated Reason For Visit: LRFT ANKLE FRACTURE, DISLOCATION Diagnosis Discharge Diagnosis (1) Ankle fracture: Status: Acute Code(s): S82.899A - Other fracture of unspecified lower leg, initial encounter for closed fracture Qualifiers: Encounter type: initial encounter Fracture type: closed Laterality: l eft Qualified Code(s): S82.892A - Other fracture of left lower leg, initial encounter for closed fracture Plan Fall with left ankle fracture * Imaging studies did show acute displaced trans-syndesmotic fracture of the lateral malleolus with associated displaced fractures of the posterior and medial malleoli and disruption of the mortise. * Pt underwent ORIF left ankle on 07/11 Chronic alcohol dependence with acute alcohol withdrawal * Patient patient started with phenobarb taper in addition to adjuvant medications including gabapentin, Bentyl, hydroxyzine and clonidine as needed for alcohol withdrawal symptoms. Patient was also placed on thiamine and folic acid. Plan is to consult addiction medicine in a.m. Acute transaminitis * trending down. * Thought to be related to patient alcohol use disorder. US shows hepatocellular disease. Recommend dc alcohol. Follow up LFTs as outpt. Chronic conditions: * Class III obesity with BMI of 36.5? Complicating care weight loss advised Medications at Discharge Home Medications lisinopril 10 mg tablet 10 mg PO DAILY #30 tabs 07/13/25 oxycodone 5 mg tablet 10 mg (2 x 5 mg) PO Q4H PRN PRN Pain Score 4-10 Or Pre Pt/Ot 3 days #24 tabs 07/13/25 Hospital Course Operations - (ORIF left ankle. ) Weight / BMI Weight Weight: 121.7 kg Body Mass Index (BMI) 35.5 ABG / Lab / Microbiology Data 07/13/25 06:16 07/13/25 06:16 Laboratory: Laboratory Results - last 24 hr 07/12/25 06:45: Hemoglobin A1c 5.0 07/13/25 06:16: WBC 10.2, RBC 3.75 L, Hgb 13.1, Hct 36.4 L, MCV 97.1 H, MCH 34.9 H, MCHC 36.0 D, RDW Std Deviation 42.4, RDW Coeff of Susi 11.9, Plt Count 155, MPV 9.4, Immature Gran % (Auto) 0.500, Neut % (Auto) 64.1, Lymph % (Auto) 18.9 L , [place] % (Auto) 12.9 H, Eos % (Auto) 3.3, Baso % (Auto) 0.3, Absolute Neuts (auto) 6.5, Absolute Lymphs (auto) 1.93, Nucleated RBC % 0, Sodium 133, Potassium 3.7, Chloride 95 L, Carbon Dioxide 26.6, Anion Gap 12, BUN 11, Creatinine 0.99, Estim Creat Clear Calc 147.75, Est GFR (MDRD) Non-Af 105, BUN/Creatinine Ratio 10.8, Glucose 99, Calcium 9.3, Total Bilirubin 1.69 H, AST 62 H, ALT 101 H, Alkaline Phosphatase 71, Total Protein 6.8, Albumin 4.1, Globulin 2.7, Albumin/Globulin Ratio 1.5 Radiography Diagnostic Testing: Radiology Impression Abdomen Ultrasound 07/12/25 08:40 IMPRESSION: Diffuse hepatocellular disease. Consider fatty infiltration among other causes. Reading Location: [id number] D/C Instructions Discharge Activity: Use Crutches Weight Bearing Status: No weight bearing Keep extremity elevated above heart level: Left Leg DC O2, CPAP, BIPAP Needs Home O2 Discharge instructions: No DC home with Oxygen: No Meaningful Use Info Meaningful Use Meaningful Use Diagnoses (Choose all that apply): None applicable Discharge Plan Admission Admit Date/Time: 07/10/25 22:33 Primary Reason for Your Visit: left ankle fracture. Attending Provider: Diego Whitley Primary Care Provider: Blanca Eckert Consulting Providers: Jalen Matute; Del Szymanski; Juan José Iqbal Instructions Additional Instructions / Restrictions: No weight-bearing left ankle. Keep your left leg elevated as much as possible. Follow up with Dr. Matute in 1 week. You had abnormal liver test during your hospitalization. It has improved, but your ultrasound showed changes. Those changes could be due to your alcohol consumption and I advise complete discontinuation of alcohol. [facility]. Discharge Orders/Prescriptions Prescriptions: New lisinopril 10 mg Tablet 10 mg PO DAILY Qty: 30 0RF oxycodone 5 mg Tablet 10 mg PO Q4H PRN PRN (Reason: Pain Score 4-10 Or Pre Pt/Ot) 3 Days Qty: 24 0RF Referrals / Follow Up: Blanca Eckert MD [Primary Care Provider, Family Practice] - Within 2 Weeks Jalen Matute DPM [Med Staff - Active Staff, Podiatry] - Within 1 Week Care Physician,No Primary [Non-Staff, Medical] Disposition Disposition (needs filled in before D/C Order can be placed): Home, Self Care Charges/Coding Visit Charges Inpatient E&M: 57813 Disch Hosp
--- NOTE | 2025-07-13 12:38 | CASEMGMT ---
Social Work- SW met with pt to discuss anxiety and provide resources. Pt reports that [facility], with the most severe symptoms being highschool to age 25 when pt was going through a break up. Pt reports that he has anxiety from the time he wakes up until he goes to bed. Pt shared that he has generalized anxiety, worrying about what ifs and things that could go wrong, but has increased anxiety in social situations. Pt reports that he worries about work, his kids, and life. SW guided pt through conversation regarding coping skills, calming techniques and interventions. SW guided pt through processing alcohol use as a coping skill with anxiety. Pt reports that he has spoken to PCP regarding anxiety before, but has never received counseling. Pt is interested in counseling and psychotropic medications. SW provided list of counseling resources as well as a guideline for anxiety and coping skills. Pt appreciative of discussion and fully engaged, showing insight and expressing intent to follow up with resources. SW remains available to follow. HAMIDA Michel
--- NOTE | 2025-07-13 12:45 | CASEMGMT ---
KAYE CM into pt room, pt sitting up in chair. Pt states his father was able to get him a walker. Pt denies any further homegoing needs.
[2025-07-13 14:57] VITALS: BP 133/84; PULSE 83; RESP 16; TEMP 37.3; O2SAT 94
--- NOTE | 2025-07-13 16:55 | PCM.PROGNOTE ---
Subjective Subjective Patient was seen today for follow up on left ankle, plans for discharge home today. Calf pain improved, and venous doppler negative for lower extremity DVT. Objective Data Objective Data Vital Signs: Vital Signs Temp Pulse Resp BP Pulse Ox O2 Del Method O2 Flow Rate 99.1 F 83 16 133/84 H 94 Room Air 3 07/13/25 14:57 07/13/25 14:57 07/13/25 14:57 07/13/25 14:57 07/13/25 14:57 07/13/25 14:57 07/12/25 08:30 FiO2 98 07/10/25 20:00 Oxygen Flow Rate (L/min) [1 ( 5 Initial Baseline)] Oxygen Flow Rate (L/min) 3 Oxygen Delivery Method [1 ( Nasal Cannula Initial Baseline)] Oxygen Delivery Method Room Air Weight: 121.7 kg Body Mass Index (BMI) 35.5 Intake & Output: Intake and Output for Last 24 Hours 07/11/25 07/12/25 07/13/25 23:59 23:59 23:59 Intake Total 2490 / 2490 1650 / 1650 800 / 800 Output Total 670 / 670 950 / 950 Balance 1820 / 1820 700 / 700 800 / 800 Lab / Micro Data 07/13/25 06:16 07/13/25 06:16 Labs: Laboratory Results - last 24 hr 07/13/25 06:16: WBC 10.2, RBC 3.75 L, Hgb 13.1, Hct 36.4 L, MCV 97.1 H, MCH 34.9 H, MCHC 36.0 D, RDW Std Deviation 42.4, RDW Coeff of Susi 11.9, Plt Count 155, MPV 9.4, Immature Gran % (Auto) 0.500, Neut % (Auto) 64.1, Lymph % (Auto) 18.9 L, Winn % (Auto) 12.9 H, Eos % (Auto) 3.3, Baso % (Auto) 0.3, Absolute Neuts (auto) 6.5, Absolute Lymphs (auto) 1.93, Nucleated RBC % 0, Sodium 133, Potassium 3.7, Chloride 95 L, Carbon Dioxide 26.6, Anion Gap 12, BUN 11, Creatinine 0.99, Estim Creat Clear Calc 147.75, Est GFR (MDRD) Non-Af 105, BUN/Creatinine Ratio 10.8, Glucose 99, Calcium 9.3, Total Bilirubin 1.69 H, AST 62 H, ALT 101 H, Alkaline Phosphatase 71, Total Protein 6.8, Albumin 4.1, Globulin 2.7, Albumin/Globulin Ratio 1.5 Radiography Diagnostic Testing: Radiology Impression Abdomen Ultrasound 07/12/25 08:40 IMPRESSION: Diffuse hepatocellular disease. Consider fatty infiltration among other causes. Reading Location: [facility] Physical Exam Const alert, oriented x3 and no apparent distress Constitutional Narrative: Left foot/ankle/leg with splint intact, removed dressing - incision sites well coapted, sutures intact, no dehiscense, no necrosis, no maloder, no cellulitis, no fluctuance, no crepitus, there is fracture blisters 1 intact and others ruptured to the posterior medial ankle, no evidence of deep involvement, CFT < 2 seconds to all toes left foot, able to dorsiflex and plantarflex toes and ankle, and sensation is intact, normal temperature to left foot and ankle, no evidence of ischemia, no evidence of compartment syndrome, no hypersensitivity to left foot or ankle, calf is soft and supple with no pain with calf squeeze left. There is edema to left foot and ankle c/w normal course, there is some ecchymosis as well c/w normal course of trauma and recent surgery as well. General Appearance: cooperative Assessment & Plan Assessment/Plan (1) Fracture dislocation of left ankle: PLAN: Plan Evaluation performed. s/p ORIF left trimalleolar ankle fracture on 07/11/2025. Changed dressing and splint today - healing appropriately at this time. Painted incision sites with betadine soln and applied gauze, kerlix and adrian dressing, applied well padded below knee fiberglass cast to cast left foot, ankle and leg. Keep clean, dry and intact. No weightbearing left foot. Keep left foot elevated. Left calf pain - improved - ordered venous doppler for further evaluation - obtained today - negative for DVT Pain management - being discharged home with oxycodone. DVT Prophylaxis: Apixaban 2.5mg PO q 12 hours. Antibiotic Prophylaxis: Augmentin 875/125mg PO q 12 hours. Elevated liver enzymes - per hospital medicine. Patient to follow up with me within 1 week, but sooner if needed. Reviewed with patient.
[2025-07-13 19:25] LABS: Prothrombin Time (Protime)PT. 13.5 SECONDS (11.7-14.9)
== END 2025-07-13 17:55 | disposition home or self-care (01) | DRG 493 ==
LOC: ED 22:42 → MS3 22:51
PROVIDERS: Internal Medicine; Podiatrist; Admitting Provider Internal Medicine; Emergency Provider Emergency Medicine; PCP Family Medicine
PROC: 0SSG04Z Reposition Left Ankle Joint with Internal Fixation Device, Open Approach (ICD-10-PCS; principal; 2025-07-11 12:00)
DX: S82.852A Displaced trimalleolar fracture of left lower leg, initial encounter for closed fracture (principal); F10.239 Alcohol dependence with withdrawal, unspecified; E66.813 Obesity, class 3; K70.10 Alcoholic hepatitis without ascites; W00.0XXA Fall on same level due to ice and snow, initial encounter; R11.0 Nausea; S93.432A Sprain of tibiofibular ligament of left ankle, initial encounter; Y93.01 Activity, walking, marching and hiking; R53.81 Other malaise; R00.0 Tachycardia, unspecified; R03.0 Elevated blood-pressure reading, without diagnosis of hypertension; R74.8 Abnormal levels of other serum enzymes; Z68.36 Body mass index [BMI] 36.0-36.9, adult
CPT/HCPCS: 36415; 73610; 73700; 76000; 76705; 80048; 80053; 82550; 83036; 83735; 84100; 85025; 85610; 85730; 93005; 93971; 94668; 97162; 97165; 99152; 99285; C1713; A4216; J2405